=== PATIENT | male | born 1960 | race Caucasian/White ===

== ENCOUNTER → 2018-05-16 | Outpatient (CLI) | payer BC, MEDICAID ==
[2018-05-16 14:54] LABS: Basophils % (A) 1 %; Eosinophils # (A) 0.2 k/uL (0-0.7); Eosinophils % (A) 5 %; HCT 40.5 % (39.0-53.0); HGB 13.8 gm/dL (13.0-17.5); Lymphocytes # (A) 1.2 k/uL (1.0-4.8); Lymphocytes % (A) 25 %; MCV 88.3 fL (80.0-100.0); Mean Platelet Volume 7.9; Monocytes # (A) 0.4 k/uL (0-1.0); Monocytes % (A) 9 %; Neutrophils # (A) 2.7 k/uL (1.3-7.7); Neutrophils % (A) 59 %; Platelet Count 140 k/uL (150-450); RBC 4.59 m/uL (4.30-5.90); RDW 13.3 % (11.5-15.5); WBC 4.6 k/uL (3.8-10.6)
[2018-05-16 15:04] LABS: Calcium 9.2 mg/dL (8.4-10.2); Potassium 4.2 mmol/L (3.5-5.1); Uric Acid 6.9 mg/dL (3.5-8.5)
== END | disposition home or self-care (01) ==
LOC: LAB 14:36
PROVIDERS: ATTEND Internal Medicine Infectious Disease
DX: M79.672 Pain in left foot (principal)
CPT/HCPCS: 80048; 84550; 85025

== ENCOUNTER → 2019-06-06 | Outpatient (CLI) | payer MEDICAID ==
--- NOTE | 2019-06-07 08:05 | MR ---
EXAMINATION TYPE: MR cervical spine wo con DATE OF EXAM: 06/06/2019 COMPARISON: None HISTORY: cervicalgia CONTRAST: Performed utilizing 0 mL intravenous Gadavist gadolinium contrast. TECHNIQUE: Multiplanar multiecho imaging on a 3.0 Susan magnet is performed through the cervical spin e. FINDINGS: The craniovertebral junction is normal. Vertebral body alignment is somewhat straightened. Disc desiccation is present throughout the cervical spine. C7-T1: No focal disc herniation or significant disc bulge is evident. No spinal canal stenosis or n eural foraminal stenosis is present. C6-7: No focal disc herniation or significant disc bulge is evident. No spinal canal stenosis or carolynn ral foraminal stenosis is present. C5-6: Endplate changes are present at C5-6 with moderate anterior thecal sac impression. Severe bilat eral foraminal stenosis is likely present due to uncovertebral joint hypertrophy and some facet hyper trophy.. C4-5: There is right paracentral endplate changes of spurring with moderate anterior thecal sac compr ession. Cord contact may be present. Spinal canal narrowing may be present. Neural foramen on the rig ht is moderate to severely narrowed and there is moderate left foraminal narrowing. C3-4: No focal disc herniation or significant disc bulge is evident. No spinal canal stenosis presen t. There is severe bilateral foraminal narrowing due to uncovertebral joint protection. C2-3: No focal disc herniation or significant disc bulge is evident. No spinal canal stenosis or carolynn ral foraminal stenosis is present. IMPRESSIONS: 1. Uncovertebral joint hypertrophy with severe bilateral foraminal narrowing discussed above. 2. Right paracentral endplate spurring C4-5 and C5-6 with moderate anterior thecal sac compression. S ome cord contact may be present at C4-5.
== END | disposition home or self-care (01) ==
LOC: RADMRIMAIN 13:29
PROVIDERS: ATTEND Orthopaedic Surgery Sports Medicine
DX: M48.02 Spinal stenosis, cervical region (principal); M19.011 Primary osteoarthritis, right shoulder; M17.11 Unilateral primary osteoarthritis, right knee
CPT/HCPCS: 72141

== ENCOUNTER → 2019-07-26 | Outpatient (CLI) | payer MEDICAID ==
[2019-07-26 12:28] VITALS: BP 141/86; PULSE 90; RESP 16
--- NOTE | 2019-07-26 13:10 | P.PAINCN ---
History of Present Illness - Reason for Consult Consult date: 07/26/19 - History of Present Illness The initial consultation visit for this 59 years old male with a history of severe neck pain with radiation to the shoulder bilaterally, started 6 months ago is constant and increases with any activity, patient diagnosed also with rotator cuff tendinosis, for that reason his doing physical therapy on his shoulder, and he had some improvement, but he continued to have severe neck pain, the pain radiated sometimes to the shoulder blade area, he denies any motor or sensory deficit he denies any fever or night sweats and there is no change in the bowel movement or urination, his currently on Ultram 50 mg when necessary and Motrin 800 mg when necessary, and he is getting some benefit from and he denies any side effect of the medication, patient reported that he had occasional numbness and tingling sensations radiates from the wrist though the hands bilaterally, but he does not have any numbness and tingling in the upper extremity Past Medical History Past Medical History: GERD/Reflux, Prostate Disorder, Thyroid Disorder Additional Past Medical History / Comment(s): migraines, "white coat syndrome", chest pain from GERD,varicose veins,hiatal hernia, enlarged prostate History of Any Multi-Drug Resistant Organisms: None Reported Past Surgical History: Cholecystectomy, Tonsillectomy Additional Past Surgical History / Comment(s): left eye lasik, left bicep reattached, lipomas removed, Past Anesthesia/Blood Transfusion Reactions: Previous Problems w/ Anesthesia Additional Past Anesthesia/Blood Transfusion Reaction / Comm: woke up during two surgeries Additional Psychological History / Comment(s): anxious about the surgery Smoking Status: Never smoker Past Alcohol Use History: Rare Past Drug Use History: None Reported - Past Family History Father Additional Family Medical History / Comment(s): ALZHEIMERS Mother Family Medical History: Cancer, Congestive Heart Failure (CHF) Additional Family Medical History / Comment(s): SKIN BASAL CELL, AORTIC STENOSIS Brother(s) Family Medical History: Cancer Additional Family Medical History / Comment(s): MELANOMA Medications and Allergies Home Medications Medication Instructions Recorded Confirmed Type Aspirin EC [Ecotrin] 81 mg PO DAILY 12/26/14 07/26/19 History Esomeprazole Magnesium [NexIUM] 40 mg PO DAILY 12/26/14 07/26/19 History Levothyroxine Sodium [Synthroid] 50 mcg PO DAILY 12/26/14 07/26/19 History Tums(Dose Unknown) 1 tab PO DIRECTED PRN 12/26/14 07/26/19 History Acetaminophen [Tylenol Extra 500 mg PO Q8HR PRN 07/26/19 07/26/19 History Strength] Ibuprofen [Motrin] 1 tab PO Q8HR 07/26/19 07/26/19 History amLODIPine [Norvasc] 1 tab PO DAILY 07/26/19 07/26/19 History traMADol HCl [Ultram] 1 tab PO PC-SUPPER 07/26/19 07/26/19 History Allergies Allergy/AdvReac Type Severity Reaction Status Date / Time egg Allergy Anaphylaxis Verified 06/15/18 11:55 Physical Exam Vitals: Vital Signs Pulse Resp BP Pulse Ox 07/26/19 12:10 90 16 141/86 98 Intake and Output 07/25/19 07/26/19 07/26/19 22:59 06:59 14:59 Other: Weight 113.398 kg REVIEW OF ORGAN SYSTEMS: CONSTITUTIONAL: No fevers or chills. No recent weight loss. EYES: History of troubles with vision. No glasses. HEENT: No difficulties with hearing. No nosebleeds. No difficulty swallowing. RESPIRATORY: Past pneumonia. Denies any troubles with breathing or dyspnea on exertion. CARDIOVASCULAR: Denies any chest pain, palpitations, or recent heart attacks. GASTROINTESTINAL: Denies fatty food intolerance. Has change in bowel habits and gas bloat. GENITOURINARY: Denies any blood in urine. Has increased urinary frequency. NEUROLOGICAL: Neck pain, numbness and tingling in the wrist and hand bilaterally. No seizure disorders or headaches. MUSCULOSKELETAL: Neck pain pain, SKIN: Past t skin cancer. No rash. PSYCHIATRIC: Denies current depression or suicidal thoughts. ENDOCRINE: Denies current thyroid disorders. Denies any blood sugar glucose intolerance. HEME/LYMPHATIC: Denies any lumps and bumps around the neck. History of deep venous thrombosis. ALLERGY/IMMUNOLOGY: No immunoglobulin therapy. No immune deficiencies. BREAST: Denies current breast lumps, pain or nipple discharge. Physical Examinations : Constitutiona : Cooperative , not in acute distress . HEENT : nech : supple , no Lymphadenopathy , normal thyroid size . eyes : no ptosis , no icterus, no photophobia . ENT : normal of hearing , normal oropharynx , no Thrush . Respiratory : Chest clear to auscultations Bilaterally , no wheezing , no Rhonchi . Cardiovascula : regular rate and rhythem , S1 , S2 , no S3 , no S4. Gastrointestina : abdomen soft no tenderness , bowel sounds , no organomegally . Genitourinary : Defferred . neurologic : Cranial nerve II to XII intact , no focal neurological deffecit . psychatric : alert , oriented X 3 , appropriate affect , intact judgment and insight . Lymphatic : no Lymphadenopathy . musculoskeltal : Cervical Spine motor stregnth in the deltoid and biceps, normal right side , normal Left side motor stregnth biceps and the wrist extensors normal right side ,normal left side . motor stregnth in the triceps muscle . normal Right side , normal Left side deep tendon reflexes normal at the biceps , normal at Brachioradialis , normal at triceps. cervical facet loading test: Positive Bilaterally Spurling test positive bilaterally. Neck distraction test positive bilaterally. Valeriy sign positive bilaterally. Decreased abduction and lateral rotation of shoulders bilaterally Lumber spine moter stegnth lower extremities ,thigh and legs 5/5 Right side , 5/5 Left side Results Comments: MRI of the cervical spine= C4 5 and C5 6 cervical degenerative disc disease on some facet arthropathy Assessment and Plan Plan: Assessment and plan= chronic neck pain secondary to cervical degenerative disc disease and cervical spondylosis with cervical facet arthropathy Bilateral carpal tunnel syndrome Patient could benefit from cervical epidural steroid injections under fluoroscopy guidance at C7-T1 Patient should continue his current medication, and he should continue physical therapy Time with Patient: Greater than 30 PQRS Measure Charge Sheet Measure #130: Documentation of Current Meds in Medical Chart: Patient's medications documented in chart Measure #226: Tobacco Use: Screen & Cessation Intervention: Pt not a tobacco user Measure #111: Pneumonia Vaccination: Pneumococcal vaccine NOT administered or previously given Measure #47: Advance Care Plan: Advance care planning discussed & documented, pt chose/unable to give Measure #412: Opioid Treatment Agreement: No documentation of signed opioid treatment agreement Measure #408: Opioid Therapy Follow-up Evaluation: Patient had NO f/u eval minimum every 3 months during opioid therapy Measure #317: Preventitive Care & Scrn High Bld Press & F/U: Pre-hypertensive or hypertensive BP documented, pt will f/u with PCP Measure #128: Body Mass Index (BMI) Screening & Follow-up: BMI documented ABOVE normal parameters - f/u documented Measure #131: Pain Assessment & Follow-up: Pain positive & plan documented, Follow-up scheduled Measure #431: Unhealthy Alcohol Use Preventative Care & Scrn: Patient not identified as an unhealthy alcohol user PQRS Narrative: Smoking Status Never smoker Blood Pressure 141/86 Pain Intensity [Shoulder] 8 Scale Used Numeric (1 - 10) Hx Alcohol Use (MH) No Home Medications: Ambulatory Orders Aspirin EC [Ecotrin] 81 mg PO DAILY 12/26/14 Esomeprazole Magnesium [NexIUM] 40 mg PO DAILY 12/26/14 Levothyroxine Sodium [Synthroid] 50 mcg PO DAILY 12/26/14 Tums(Dose Unknown) 1 tab PO DIRECTED PRN 12/26/14 Acetaminophen [Tylenol Extra Strength] 500 mg PO Q8HR PRN 07/26/19 Ibuprofen [Motrin] 1 tab PO Q8HR 07/26/19 amLODIPine [Norvasc] 1 tab PO DAILY 07/26/19 traMADol HCl [Ultram] 1 tab PO PC-SUPPER 07/26/19
== END | disposition home or self-care (01) ==
LOC: PNWHC3 11:39
PROVIDERS: ATTEND Specialist
DX: G89.29 Other chronic pain (principal); M50.321 Other cervical disc degeneration at C4-C5 level; M47.812 Spondylosis without myelopathy or radiculopathy, cervical region; M46.92 Unspecified inflammatory spondylopathy, cervical region; G56.03 Carpal tunnel syndrome, bilateral upper limbs; Z79.82 Long term (current) use of aspirin; Z79.891 Long term (current) use of opiate analgesic; Z79.1 Long term (current) use of non-steroidal anti-inflammatories (NSAID); Z79.899 Other long term (current) drug therapy
CPT/HCPCS: 99211

== ENCOUNTER 2019-08-07 09:42 | Day surgery (SDC) | payer MEDICAID ==
[2019-08-06 09:40] VITALS: BMI 33.9
[~2019-08-07 09:42] MED LIST: LACTATED RINGERS 1,000 ML IV SCH
[2019-08-07 10:25] VITALS: RESP 16; TEMP 98.1
[2019-08-07] MEDS ORDERED: LIDOCAINE 1% 20 ML VIAL (10MG/ML) FOR IV START INTRADERMA ONE (10:30)
--- NOTE | 2019-08-07 10:59 | P.PCN ---
Date of Procedure: 08/07/19 Procedure(s) Performed: . PROCEDURE 1. Cervical epidural steroid injection under fluoroscopic guidance, C7-T1 (fluoroscopy images available in the radiology department ) 2. Cervical epidurogram. PREOPERATIVE DIAGNOSIS: 1- Cervical Degenerative Disc Diseases 2-cervical spondylosis with cervical Facet arthropathy without myelopathy POSTOPERATIVE DIAGNOSIS: : 1- Cervical Degenerative Disc Diseases , 2-cervical spondylosis with cervical Facet arthropathy without myelopathy ANESTHESIA: Local anesthesia with lidocaine 1 % , and moderate sedation, with Versed 2 mg and Fentanyl 100 mcg. EBL 0 PROCEDURE INDICATION: The patient with neck pain and radiculitis unresponsive to conservative treatment consents for procedure. PROCEDURE DESCRIPTION / TECHNIQUE: The patient was seen and identified in the preoperative area. Risks, benefits, complications, including but not limited to infections ,bleeding , allergic reactions to the medications ,and not complete pain releife, and alternatives were discussed with the patient, the patient agreed to proceed with the procedure and signed the consent. Patient was taken to the OR and time out was completed. The patient was placed in the prone position on the procedure table. A pillow was placed under the patients chest to increase the cervical interlaminar space. The cervical area was prepped and draped in the usual sterile fashion. Vital signs were closely monitored during the procedure. Conscious sedation was used during the procedure to decrease patients anxiety. Using anterior-posterior fluoroscopy, the C7-T1 interlaminar space was identified and the skin over this site was marked and then infiltrated with 1% lidocaine subcutaneously. Subsequently, a 20-gauge 3-1/2-inch Tuohy epidural needle was inserted and advanced toward the epidural space by means of the ``hanging-drop technique and guided by AP and lateral fluoroscopy. The correct needle position in the epidural space was verified with the injection of 2 mL of the water soluble contrast dye [id number]-200 and observing an excellent epidurogram with the epidural spread of the dye, after negative aspiration for blood and CSF and in the absence of paresthesias. Again after negative aspiration, mixture containing 20 mg Dexamethasone and 2 ml of preservative- free normal saline injected and a washout of epidurogram was seen. Needle was withdrawn intact, skin was cleansed, and bandages were applied. Complications= none. Disposition= patient was placed in supine position and transferred to the recovery room area in stable condition and there was no evidence of upper or lower extremity motor or sensory deficit after the procedure patient was discharged from recovery room after discharge criteria met and home discharge instructions was given by the staff and patient will follow with the pain clinic in 2-4 weeks
[2019-08-07] MEDS ORDERED: IV FLUID CONTINUATION 700 ML IV ONE (11:05)
[2019-08-07 11:23] VITALS: BP 130/86; PULSE 72
--- NOTE | 2019-08-08 10:55 | FL ---
Fluoroscopy HISTORY: Pain 1 seconds fluoroscopy time supplied to the referring clinician. 1 intraoperative C-arm images docume nt the procedure. See dictated report from anesthesia.
== END 2019-08-07 11:47 | disposition home or self-care (01) ==
LOC: ORPAIN 09:42
PROVIDERS: ATTEND Specialist
DX: M50.13 Cervical disc disorder with radiculopathy, cervicothoracic region (principal); M47.22 Other spondylosis with radiculopathy, cervical region; Z91.012 Allergy to eggs
CPT/HCPCS: 62321; J2250; J1100; J3010; Q9966

== ENCOUNTER 2019-08-08 21:24 | Emergency (ER) | payer MEDICAID ==
--- NOTE | 2019-08-08 21:35 | ED ---
General Adult HPI - General Chief complaint: Dizziness Stated complaint: facial & head pressure Time Seen by Provider: 08/08/19 21:34 Source: patient Mode of arrival: ambulatory Limitations: no limitations - History of Present Illness Initial comments: Jose is a 59-year-old gentleman who presents to the ER today for evaluation of hypertension and facial flushing. Patient reports that yesterday he had steroid injections in his neck for treatment of chronic neck pain, patient reports that he was feeling fine today. He reported his neck and shoulder pain which is chronic was significantly improved. He states that he did do a little more physical activity than usual due to feeling better. He states that this evening he began to feel that his face was very flushed and is having a mild headache. He checked his blood pressure and noted that it was significantly elevated at greater than 200/100 at home. Patient usually takes Norvasc daily, he did take his morning dose but chose to take an extra dose this evening. Due to the redness and flushing he also took some Benadryl and 2 Tylenol. He then had his drive him to the ER for further evaluation. Upon arrival patient reports she is arty feeling better, the flushing his improved with Benadryl the headache is improved with Tylenol and his blood pressure is improving upon arrival. The patient denies any chest pain, palpitations or shortness of breath. He denies any vision changes or focal neurologic deficits. - Related Data Home Medications Medication Instructions Recorded Confirmed Aspirin EC [Ecotrin] 81 mg PO DAILY 12/26/14 08/08/19 Levothyroxine Sodium [Synthroid] 50 mcg PO DAILY 12/26/14 08/08/19 Acetaminophen [Tylenol Extra 500 - 1,000 mg PO Q8HR PRN 07/26/19 08/08/19 Strength] Ibuprofen [Motrin] 400 mg PO Q8HR PRN 07/26/19 08/08/19 traMADol HCl [Ultram] 50 mg PO Q12H PRN 07/26/19 08/08/19 Calcium Carbonate [Tums] 500 mg PO QID PRN 08/06/19 08/08/19 Ascorbic Acid [Vitamin C] 1,000 mg PO DAILY 08/08/19 08/08/19 Diazepam [Valium] 5 mg PO DAILY PRN 08/08/19 08/08/19 Esomeprazole Magnesium [NexIUM 20 mg PO BID 08/08/19 08/08/19 24Hr] Glucos Sul 2Kcl/MSM/Chond/C/Mn 1 cap PO DAILY 08/08/19 08/08/19 [Glucosamine Chondroitin Cap] amLODIPine [Norvasc] 2.5 mg PO DAILY 08/08/19 08/08/19 diphenhydrAMINE HCL [Benadryl] 25 mg PO Q6H PRN 08/08/19 08/08/19 Allergies Allergy/AdvReac Type Severity Reaction Status Date / Time egg Allergy Anaphylaxis Verified 08/08/19 22:10 Review of Systems ROS Statement: Those systems with pertinent positive or pertinent negative responses have been documented in the HPI. ROS Other: All systems not noted in ROS Statement are negative. Past Medical History Past Medical History: GERD/Reflux, Prostate Disorder, Thyroid Disorder Additional Past Medical History / Comment(s): migraines, "white coat syndrome", chest pain from GERD,varicose veins,hiatal hernia, enlarged prostate History of Any Multi-Drug Resistant Organisms: None Reported Past Surgical History: Cholecystectomy, Tonsillectomy Additional Past Surgical History / Comment(s): left eye lasik, left bicep reattached, lipomas removed, Past Anesthesia/Blood Transfusion Reactions: Previous Problems w/ Anesthesia Additional Past Anesthesia/Blood Transfusion Reaction / Comment(s): woke up during two surgeries Past Psychological History: No Psychological Hx Reported Smoking Status: Never smoker Past Alcohol Use History: Rare Past Drug Use History: None Reported - Past Family History Father Additional Family Medical History / Comment(s): ALZHEIMERS. Mother Family Medical History: Cancer, Congestive Heart Failure (CHF) Additional Family Medical History / Comment(s): SKIN BASAL CELL, AORTIC GERI NOSIS. Brother(s) Family Medical History: Cancer Additional Family Medical History / Comment(s): MELANOMA, Prostate cancer. General Exam - General Exam Comments Initial Comments: Physical Exam GENERAL: Patient is well-developed and well-nourished. Patient is nontoxic and well-hydrated and is in no distress. HENT: Normocephalic, Atraumatic. EYES: PERRL, EOMI PULMONARY: Unlabored respirations. No audible rales rhonchi or wheezing was noted. CARDIOVASCULAR: There is a regular rate and rhythm without any murmurs gallops or rubs. ABDOMEN: Soft and nontender with normal bowel sounds. SKIN: Skin is clear with no lesions or rashes and otherwise unremarkable. Mild facial flushing : Deferred NEUROLOGIC: Patient is alert and oriented x3. Moving all extremities spontaneously MUSCULOSKELETAL: Normal extremities with adequate strength and full range of motion. No lower extremity swelling or edema. No calf tenderness. PSYCHIATRIC: Normal psychiatric evaluation. Limitations: no limitations Course Vital Signs 08/08/19 08/09/19 21:27 00:05 Temperature 98.2 F Pulse Rate 86 82 Respiratory 20 20 Rate Blood Pressure 199/111 136/93 O2 Sat by Pulse 96 95 Oximetry EKG Findings - EKG Comments: EKG Findings:: EKG was obtained due to hypertension, EKG was obtained at 2223, rate is 81 rhythm is sinus with a right bundle branch block, MD 160, 18, QTC Is [address] Elevations or Depressions No Evidence of Acute Ischemia or Infarction. Medical Decision Making - Medical Decision Making Patient was seen and evaluated, history is obtained from the patient as well as at bedside this is a pleasant 59-year-old gentleman who had a steroid injection yesterday today experience some facial flushing and hypertension. He took extra dose of antihypertensives prior to arrival and blood pressure is improving on arrival bedside EKG was unremarkable labs are unremarkable upon reevaluation patient reports he's feeling much better aside from the fact that the hospital but is quite uncomfortable and is irritating his chronic neck pain. This time patient like to be discharged home. All questions pertaining care were answered return parameters were discussed patient was discharged home in stable condition. - Lab Data Result diagrams: 08/08/19 22:13 08/08/19 22:13 Lab Results 08/08/19 08/08/19 08/08/19 Range/Units 22:13 22:13 22:13 WBC 11.4 H (3.8-10.6) k/uL RBC 4.70 (4.30-5.90) m/uL Hgb 14.6 (13.0-17.5) gm/dL Hct 42.4 (39.0-53.0) % MCV 90.1 (80.0-100.0) fL MCH 31.1 (25.0-35.0) pg MCHC 34.5 (31.0-37.0) g/dL RDW 13.2 (11.5-15.5) % Plt Count 166 (150-450) k/uL Neutrophils % 78 % Lymphocytes % 15 % Monocytes % 5 % Eosinophils % 0 % Basophils % 1 % Neutrophils # 8.9 H (1.3-7.7) k/uL Lymphocytes # 1.7 (1.0-4.8) k/uL Monocytes # 0.5 (0-1.0) k/uL Eosinophils # 0.0 (0-0.7) k/uL Basophils # 0.1 (0-0.2) k/uL PT 10.3 (9.0-12.0) sec INR 1.0 (<1.2) APTT 22.0 (22.0-30.0) sec Sodium 140 (137-145) mmol/L Potassium 4.1 (3.5-5.1) mmol/L Chloride 107 (98-107) mmol/L Carbon Dioxide 24 (22-30) mmol/L Anion Gap 9 mmol/L BUN 15 (9-20) mg/dL Creatinine 0.92 (0.66-1.25) mg/dL Est GFR (CKD-EPI)AfAm >90 (>60 ml/min/1.73 sqM) Est GFR (CKD-EPI)NonAf >90 (>60 ml/min/1.73 sqM) Glucose 121 H (74-99) mg/dL Calcium 9.6 (8.4-10.2) mg/dL Magnesium 2.2 (1.6-2.3) mg/dL Total Bilirubin 0.4 (0.2-1.3) mg/dL AST 34 (17-59) U/L ALT 62 (21-72) U/L Alkaline Phosphatase 57 (38-126) U/L Troponin I (0.000-0.034) ng/mL Total Protein 7.6 (6.3-8.2) g/dL Albumin 4.5 (3.5-5.0) g/dL 08/08/19 Range/Units 22:13 WBC (3.8-10.6) k/uL RBC (4.30-5.90) m/uL Hgb (13.0-17.5) gm/dL Hct (39.0-53.0) % MCV (80.0-100.0) fL MCH (25.0-35.0) pg MCHC (31.0-37.0) g/dL RDW (11.5-15.5) % Plt Count (150-450) k/uL Neutrophils % % Lymphocytes % % Monocytes % % Eosinophils % % Basophils % % Neutrophils # (1.3-7.7) k/uL Lymphocytes # (1.0-4.8) k/uL Monocytes # (0-1.0) k/uL Eosinophils # (0-0.7) k/uL Basophils # (0-0.2) k/uL PT (9.0-12.0) sec INR (<1.2) APTT (22.0-30.0) sec Sodium (137-145) mmol/L Potassium (3.5-5.1) mmol/L Chloride (98-107) mmol/L Carbon Dioxide (22-30) mmol/L Anion Gap mmol/L BUN (9-20) mg/dL Creatinine (0.66-1.25) mg/dL Est GFR (CKD-EPI)AfAm (>60 ml/min/1.73 sqM) Est GFR (CKD-EPI)NonAf (>60 ml/min/1.73 sqM) Glucose (74-99) mg/dL Calcium (8.4-10.2) mg/dL Magnesium (1.6-2.3) mg/dL Total Bilirubin (0.2-1.3) mg/dL AST (17-59) U/L ALT (21-72) U/L Alkaline Phosphatase (38-126) U/L Troponin I <0.012 (0.000-0.034) ng/mL Total Protein (6.3-8.2) g/dL Albumin (3.5-5.0) g/dL Disposition Clinical Impression: Hypertension Disposition: HOME SELF-CARE Condition: Stable Instructions (If sedation given, give patient instructions): Chronic Hypertension (DC) Is patient prescribed a controlled substance at d/c from ED?: No Referrals: Ravin Guillermo MD [REFERRING] - 1-2 days
[2019-08-08 22:40] LABS: Basophils # (A) 0.1 k/uL (0-0.2); Basophils % (A) 1 %; Eosinophils % (A) 0 %; HCT 42.4 % (39.0-53.0); HGB 14.6 gm/dL (13.0-17.5); Lymphocytes # (A) 1.7 k/uL (1.0-4.8); Lymphocytes % (A) 15 %; MCH 31.1 pg (25.0-35.0); MCHC 34.5 g/dL (31.0-37.0); MCV 90.1 fL (80.0-100.0); Mean Platelet Volume 8.3; Monocytes # (A) 0.5 k/uL (0-1.0); Monocytes % (A) 5 %; Neutrophils # (A) 8.9 k/uL (1.3-7.7); Neutrophils % (A) 78 %; Platelet Count 166 k/uL (150-450); RDW 13.2 % (11.5-15.5); WBC 11.4 k/uL (3.8-10.6)
[2019-08-08 22:47] LABS: ALT 62 U/L (21-72); AST 34 U/L (17-59); African American GFR (CKD) >90 (>60 ml/min/1.73 sqM); Albumin 4.5 g/dL (3.5-5.0); Alkaline Phosphatase 57 U/L (38-126); Anion Gap 9 mmol/L; Blood Urea Nitrogen 15 mg/dL (9-20); Calcium 9.6 mg/dL (8.4-10.2); Carbon Dioxide 24 mmol/L (22-30); Chloride 107 mmol/L (98-107); Glucose 121 mg/dL (74-99); Magnesium 2.2 mg/dL (1.6-2.3); Potassium 4.1 mmol/L (3.5-5.1); Sodium 140 mmol/L (137-145); Total Bilirubin 0.4 mg/dL (0.2-1.3); Total Protein 7.6 g/dL (6.3-8.2)
[2019-08-08 22:54] LABS: Prothrombin Time 10.3 sec (9.0-12.0)
--- NOTE | 2019-08-08 23:04 | XR ---
EXAMINATION TYPE: XR chest 2V DATE OF EXAM: 08/08/2019 COMPARISON: May 04, 2013 HISTORY: Dizziness and chest pain TECHNIQUE: Frontal and lateral views of the chest are obtained. FINDINGS: Heart and mediastinum are normal. Lungs are clear. Diaphragm is normal. Bony thorax appear s intact. There are chest leads. Pulmonary vascularity is normal. IMPRESSION: Normal chest. No change.
[2019-08-09 00:35] VITALS: BP 142/91; PULSE 79; RESP 18; TEMP 98.1
== END 2019-08-09 00:32 | disposition home or self-care (01) ==
LOC: EC 21:24 → SUPCPDRO 21:24 → EC 08-09 00:32
DX: I10 Essential (primary) hypertension (principal); G89.29 Other chronic pain; M54.2 Cervicalgia; K21.9 Gastro-esophageal reflux disease without esophagitis; E07.9 Disorder of thyroid, unspecified; Z79.82 Long term (current) use of aspirin; Z79.890 Hormone replacement therapy; Z79.899 Other long term (current) drug therapy; Z91.012 Allergy to eggs
CPT/HCPCS: 36415; 71046; 80053; 83735; 84484; 85025; 85610; 85730; 93005; 99284

== ENCOUNTER → 2019-09-18 | Outpatient (CLI) | payer MEDICAID ==
[2019-09-18 15:01] VITALS: BP 141/98; PULSE 89; RESP 18
--- NOTE | 2019-09-19 08:11 | P.PN ---
Subjective Progress Note Date: 09/19/19 this is a 59 years old male, a chronic history of neck pain, diagnosed with cervical degenerative disc disease and cervical spondylosis with cervical facet arthropathy, he is here for follow-up visit status post cervical epidural steroid injections, done recently, patient had side effects from the steroid, and he has to go to the emergency room, here for the postop day 1 he has increased his blood pressure and had facial flushing, he reported that he had good pain relief after the injection , and the pain relief lasted only for 2 weeks, Objective - Vital Signs Vital signs: Vital Signs Temp Pulse 89 09/18/19 14:43 Resp 18 09/18/19 14:43 BP 141/98 09/18/19 14:43 Pulse Ox 95 09/18/19 14:43 - Exam Constitutiona : Cooperative , not in acute distress . HEENT : nech : supple , no Lymphadenopathy , normal thyroid size . eyes : no ptosis , no icterus, no idania tophobia . . neurologic : Cranial nerve II to XII intact , no focal neurological deffecit . psychatric : alert , oriented X 3 , appropriate affect , intact judgment and insight . Lymphatic : no Lymphadenopathy . musculoskeltal : Cervical Spine motor stregnth in the deltoid and biceps, normal right side , normal Left side motor stregnth biceps and the wrist extensors normal right side ,normal left side . motor stregnth in the triceps muscle . normal Right side , normal Left side deep tendon reflexes normal at the biceps , normal at Brachioradialis , normal at triceps. cervical facet loading test: Positive Bilaterally Spurling test positive bilaterally. Neck distraction test positive bilaterally. Valeriy sign positive bilaterally. Decreased abduction and lateral rotation of shoulders bilaterally Lumber spine moter stegnth lower extremities ,thigh and legs 5/5 Right side , 5/5 Left side Assessment and Plan Plan: assessment and plan= chronic severe neck pain secondary to cervical degenerative disc disease and cervical spondylosis, status post cervical epidural steroid injection, he had side effects from the steroid, I have lengthy discussion with the patient about the side effects of the steroid ,and I explained to the patient ,that the side effects could happen again, and the best option is to give Benadryl ,for a few days, after the injection and also monitor the blood pressure if we have to increase the dose of antihypertensive medication, and patient willing to proceed. Time with Patient: Less than 30
== END | disposition home or self-care (01) ==
LOC: PNWHC3 13:46
PROVIDERS: ATTEND Specialist
DX: G89.29 Other chronic pain (principal); M50.30 Other cervical disc degeneration, unspecified cervical region; M47.812 Spondylosis without myelopathy or radiculopathy, cervical region; Z79.899 Other long term (current) drug therapy
CPT/HCPCS: 99211

== ENCOUNTER → 2019-10-09 | Day surgery (SDC) | payer MEDICAID ==
[~2019-10-09] MED LIST changes: +DEXAMETHASONE SOD PHOSPHATE 10 MG/ML 1 ML VIAL ONE; +IOPAMIDOL M200 10 ML VIAL ONE; +LIDOCAINE 1% 20 ML VIAL (10MG/ML) FOR IV START INTRADERMA ONE; +MIDAZOLAM 2 MG/2 ML VIAL ONE; +fentaNYL (PF) 50 MCG/ML 2 ML AMP ONE
[2019-10-09 07:10] VITALS: TEMP 97.6
--- NOTE | 2019-10-09 07:50 | P.PCN ---
Date of Procedure: 10/09/19 Procedure(s) Performed: PROCEDURE 1. Cervical epidural steroid injection under fluoroscopic guidance, C7-T1 (fluoroscopy images available in the radiology department ) 2. Cervical epidurogram. PREOPERATIVE DIAGNOSIS: 1- Cervical Degenerative Disc Diseases 2-cervical spondylosis with cervical Facet arthropathy without myelopathy POSTOPERATIVE DIAGNOSIS: : 1- Cervical Degenerative Disc Diseases , 2-cervical spondylosis with cervical Facet arthropathy without myelopathy ANESTHESIA: Local anesthesia with lidocaine 1 % , and moderate sedation, with Versed 2 mg and Fentanyl 100 mcg. EBL 0 PROCEDURE INDICATION: The patient with neck pain and radiculitis unresponsive to conservative treatment consents for procedure. PROCEDURE DESCRIPTION / TECHNIQUE: The patient was seen and identified in the preoperative area. Risks, benefits, complications, including but not limited to infections ,bleeding , allergic reactions to the medications ,and not complete pain releife, and alternatives were discussed with the patient, the patient agreed to proceed with the procedure and signed the consent. Patient was taken to the OR and time out was completed. The patient was placed in the prone position on the procedure table. A pillow was placed under the patients chest to increase the cervical interlaminar space. The cervical area was prepped and draped in the usual sterile fashion. Vital signs were closely monitored during the procedure. Conscious sedation was used during the procedure to decrease patients anxiety. Using anterior-posterior fluoroscopy, the C7-T1 interlaminar space was identified and the skin over this site was marked and then infiltrated with 1% lidocaine subcutaneously. Subsequently, a 20-gauge 3-1/2-inch Tuohy epidural needle was inserted and advanced toward the epidural space by means of the ``hanging-drop technique and guided by AP and lateral fluoroscopy. The correct needle position in the epidural space was verified with the injection of 2 mL of the water soluble contrast dye [id number]-200 and observing an excellent epidurogram with the epidural spread of the dye, after negative aspiration for blood and CSF and in the absence of paresthesias. Again after negative aspiration, mixture containing 15 mg Dexamethasone and 2 ml of preservative- free normal saline injected and a washout of epidurogram was seen. Needle was withdrawn intact, skin was cleansed, and bandages were applied. Complications= none. Disposition= patient was placed in supine position and transferred to the recovery room area in stable condition and there was no evidence of upper or lower extremity motor or sensory deficit after the procedure patient was discharged from recovery room after discharge criteria met and home discharge instructions was given by the staff and patient will follow with the pain clinic in 2-4 weeks
[2019-10-09 07:58] VITALS: RESP 17
[2019-10-09 08:11] VITALS: BP 138/85; PULSE 77
--- NOTE | 2019-10-09 08:51 | FL ---
EXAMINATION TYPE: FL guided pain mgmt statistic DATE OF EXAM: 10/09/2019 HISTORY: Flouroscopy time 5 seconds of fluoroscopy provided. IMPRESSION: 1. Fluoroscopy time.
== END ==
LOC: ORPAIN 06:28
PROVIDERS: ATTEND Anesthesiology
DX: M47.22 Other spondylosis with radiculopathy, cervical region (principal); M50.10 Cervical disc disorder with radiculopathy, unspecified cervical region; Z91.012 Allergy to eggs
CPT/HCPCS: 62321; J2250; J1100; J3010; Q9966

== ENCOUNTER → 2019-10-31 | Outpatient (CLI) | payer MEDICAID ==
[2019-10-31 12:41] VITALS: BP 144/88; PULSE 87; RESP 18
--- NOTE | 2019-11-01 05:30 | P.PAINPG ---
Subjective Progress Note Date: 10/31/19 this is visit for this 59 years old male, a chronic history of neck pain, diagnosed with cervical degenerative disc disease and cervical spondylosis with cervical facet arthropathy,status post cervical epidural steroid injections x2 , he reported that his pain improved significantly but he continued to some muscle spasm in the cervical area, he feels that he hasn't the 60-70% improvement of his neck pain, he denies any motor or sensory deficit, he denies any fever or night sweats and no change in the bowel movement or urination, he had side effects from the steroid he had facial flushing and some increase in his blood pressure which was managed with Benadryl ,he continued to use Ultram and [place],m otrin,and Robaxin as precriped by his PCP , Objective - Vital Signs Vital signs: Vital Signs Temp Pulse 87 10/31/19 12:34 Resp 18 10/31/19 12:34 BP 144/88 10/31/19 12:34 Pulse Ox 95 10/31/19 12:34 - Exam Constitutiona : Cooperative , not in acute distress . HEENT : nech : supple , no Lymphadenopathy , normal thyroid size . eyes : no ptosis , no icterus, no photophobia . . neurologic : Cranial nerve II to XII intact , no focal neurological deffecit . psychatric : alert , oriented X 3 , appropriate affect , intact judgment and insight . Lymphatic : no Lymphadenopathy . musculoskeltal : Cervical Spine motor stregnth in the deltoid and biceps, normal right side , normal Left side motor stregnth biceps and the wrist extensors normal right side ,normal left side . motor stregnth in the triceps muscle . normal Right side , normal Left side deep tendon reflexes normal at the biceps , normal at Brachioradialis , normal at triceps. cervical facet loading test: Positive Bilaterally Spurling test positive bilaterally. Neck distraction test positive bilaterally. Valeriy sign positive bilaterally. Decreased abduction and lateral rotation of shoulders bilaterally Lumber spine moter stegnth lower extremities ,thigh and legs 5/5 Right side , 5/5 Left side Assessment and Plan Plan: assessment and plan= cervical degenerative disc disease, cervical spondylosis with cervical facet arthropathy, pain improved after cervical epidural steroid injection 2, but he continued to have some neck pain and some muscle spasm, patient would be good candidate to have a third cervical epidural steroid injections, procedure risk and benefits and alternatives discussed with the patient he agreed with the preceding patient will continue to use his current pain medication Ultram, [place], Motrin and Robaxin as prescribed by his primary care patient denies any side effect of the medication. PQRS Measure Charge Sheet Measure #130: Documentation of Current Meds in Medical Chart: Patient's medications documented in chart Measure #226: Tobacco Use: Screen & Cessation Intervention: Pt not a tobacco user Measure #111: Pneumonia Vaccination: Pneumococcal vaccine NOT administered or previously given Measure #47: Advance Care Plan: Advance care planning discussed & documented, pt chose/unable to give Measure #412: Opioid Treatment Agreement: No documentation of signed opioid treatment agreement Measure #408: Opioid Therapy Follow-up Evaluation: Patient had NO f/u eval minimum every 3 months during opioid therapy Measure #317: Preventitive Care & Scrn High Bld Press & F/U: Pre-hypertensive or hypertensive BP documented, pt will f/u with PCP Measure #128: Body Mass Index (BMI) Screening & Follow-up: BMI documented ABOVE normal parameters - f/u documented Measure #131: Pain Assessment & Follow-up: Pain positive & plan documented, Follow-up scheduled Measure #431: Unhealthy Alcohol Use Preventative Care & Scrn: Patient not identified as an unhealthy alcohol user PQRS Narrative: Smoking Status Never smoker Blood Pressure 144/88 Pain Intensity [Neck] 1 Scale Used Numeric (1 - 10) Hx Alcohol Use (MH) Yes: RARE Home Medications: Ambulatory Orders Aspirin EC [Ecotrin] 81 mg PO DAILY 12/26/14 Levothyroxine Sodium [Synthroid] 50 mcg PO DAILY 12/26/14 Acetaminophen [Tylenol Extra Strength] 500 - 1,000 mg PO Q8HR PRN 07/26/19 Ibuprofen [Motrin] 400 mg PO Q8HR PRN 07/26/19 traMADol HCl [Ultram] 50 mg PO Q12H PRN 07/26/19 Calcium Carbonate [Tums] 500 mg PO QID PRN 08/06/19 Ascorbic Acid [Vitamin C] 500 mg PO DAILY 08/08/19 Diazepam [Valium] 2.5 mg PO DAILY PRN 08/08/19 Esomeprazole Magnesium [NexIUM 24Hr] 20 mg PO BID 08/08/19 Glucos Sul 2Kcl/MSM/Chond/C/Mn [Glucosamine Chondroitin Cap] 1 cap PO DAILY 08/08/19 amLODIPine [Norvasc] 2.5 mg PO DAILY 08/08/19 HYDROcodone/APAP 5-325MG [[place] 5-325] 1 tab PO BID 09/14/19 Robaxin 500 mg PO HS PRN 09/14/19 Melatonin 2.5 mg PO DAILY 10/31/19 Sulfamethox-Tmp 800-160Mg [Bactrim DS 800-160 mg] 1 tab PO BID 10/31/19 Controlled Substance Measures - Controlled Substance Measures Is patient prescribed a controlled substance at discharge?: No
== END | disposition home or self-care (01) ==
LOC: PNWHC3 12:23
PROVIDERS: ATTEND Specialist
DX: M50.30 Other cervical disc degeneration, unspecified cervical region (principal); M47.812 Spondylosis without myelopathy or radiculopathy, cervical region; M46.92 Unspecified inflammatory spondylopathy, cervical region; Z79.82 Long term (current) use of aspirin; Z79.890 Hormone replacement therapy; Z79.1 Long term (current) use of non-steroidal anti-inflammatories (NSAID); Z79.899 Other long term (current) drug therapy; Z79.891 Long term (current) use of opiate analgesic
CPT/HCPCS: 99211

== ENCOUNTER 2019-12-12 06:32 | Day surgery (SDC) | payer MEDICAID ==
[2019-12-11 10:28] VITALS: BMI 33.9
[~2019-12-12 06:32] MED LIST changes: -DEXAMETHASONE SOD PHOSPHATE 10 MG/ML 1 ML VIAL ONE; -IOPAMIDOL M200 10 ML VIAL ONE; -LIDOCAINE 1% 20 ML VIAL (10MG/ML) FOR IV START INTRADERMA ONE; -MIDAZOLAM 2 MG/2 ML VIAL ONE; -fentaNYL (PF) 50 MCG/ML 2 ML AMP ONE
[2019-12-12 07:04] LABS: Glucose,Whole Blood 65 mg/dL (75-99)
[2019-12-12 07:06] VITALS: RESP 16; TEMP 97.9
--- NOTE | 2019-12-12 07:47 | P.GSHP ---
History of Present Illness H&P Date: 12/12/19 this is visit for this 59 years old male, a chronic history of neck pain, diagnosed with cervical degenerative disc disease and cervical spondylosis with cervical facet arthropathy, and patient here today to have cervical epidural steroid injections under fluoroscopy guidance Past Medical History Past Medical History: GERD/Reflux, Prostate Disorder, Thyroid Disorder Additional Past Medical History / Comment(s): migraines, "white coat syndrome", chest pain from GERD,varicose veins,hiatal hernia, enlarged prostate History of Any Multi-Drug Resistant Organisms: None Reported Past Surgical History: Cholecystectomy, Tonsillectomy Additional Past Surgical History / Comment(s): left eye lasik, left bicep reattached, lipomas removed, PAIN CLINIC PROCEDURE Past Anesthesia/Blood Transfusion Reactions: Previous Problems w/ Anesthesia Additional Past Anesthesia/Blood Transfusion Reaction / Comment(s): woke up during two surgeries Smoking Status: Never smoker - Past Family History Father Additional Family Medical History / Comment(s): ALZHEIMERS. Mother Family Medical History: Cancer, Congestive Heart Failure (CHF) Additional Family Medical History / Comment(s): SKIN BASAL CELL, AORTIC STENOSIS. Brother(s) Family Medical History: Cancer Additional Family Medical History / Comment(s): MELANOMA, Prostate cancer. Medications and Allergies Home Medications Medication Instructions Recorded Confirmed Type Aspirin EC [Ecotrin] 81 mg PO DAILY 12/26/14 12/12/19 History Levothyroxine Sodium [Synthroid] 50 mcg PO DAILY 12/26/14 12/12/19 History Acetaminophen [Tylenol Extra 500 - 1,000 mg PO Q8HR PRN 07/26/19 12/12/19 History Strength] Ibuprofen [Motrin] 800 mg PO Q8HR PRN 07/26/19 12/12/19 History traMADol HCl [Ultram] 50 mg PO Q12H PRN 07/26/19 12/12/19 History Calcium Carbonate [Tums] 500 mg PO QID PRN 08/06/19 12/12/19 History Ascorbic Acid [Vitamin C] 500 mg PO DAILY 08/08/19 12/12/19 History Diazepam [Valium] 2.5 mg PO DAILY PRN 08/08/19 12/12/19 History Esomeprazole Magnesium [NexIUM 20 mg PO BID 08/08/19 12/12/19 History 24Hr] Glucos Sul 2Kcl/MSM/Chond/C/Mn 1 cap PO DAILY 08/08/19 12/12/19 History [Glucosamine Chondroitin Cap] amLODIPine [Norvasc] 2.5 mg PO DAILY 08/08/19 12/12/19 History HYDROcodone/APAP 5-325MG [[place] 1 tab PO BID PRN 09/14/19 12/12/19 History 5-325] Melatonin 2.5 mg PO HS PRN 10/31/19 12/12/19 History Methocarbamol [Robaxin] 500 mg PO HS PRN 11/21/19 12/12/19 History Allergies Allergy/AdvReac Type Severity Reaction Status Date / Time egg Allergy Anaphylaxis Verified 12/11/19 10:20 Surgical - Exam Vital Signs Temp Pulse Resp BP Pulse Ox 97.9 F 76 16 132/88 94 L 12/12/19 06:53 12/12/19 06:53 12/12/19 06:53 12/12/19 06:53 12/12/19 06:53 Constitutiona : Cooperative , not in acute distress . HEENT : nech : supple , no Lymphadenopathy , normal thyroid size . eyes : no ptosis , no icterus, no photophobia . . neurologic : Cranial nerve II to XII intact , no focal neurological deffecit . psychatric : alert , oriented X 3 , appropriate affect , intact judgment and insight . Lymphatic : no Lymphadenopathy . musculoskeltal : Cervical Spine motor stregnth in the deltoid and biceps, normal right side , normal Left side motor stregnth biceps and the wrist extensors normal right side ,normal left side . motor stregnth in the triceps muscle . normal Right side , normal Left side deep tendon reflexes normal at the biceps , normal at Brachioradialis , normal at triceps. cervical facet loading test: Positive Bilaterally Spurling test positive bilaterally. Neck distraction test positive bilaterally. Valeriy sign positive bilaterally. Decreased abduction and lateral rotation of shoulders bilaterally Lumber spine moter stegnth lower extremities ,thigh and legs 5/5 Right side , 5/5 Left side Results - Labs Abnormal Lab Results - Last 24 Hours (Table) 12/12/19 Range/Units 07:03 POC Glucose (mg/dL) 65 L (75-99) mg/dL Assessment and Plan Plan: assessment and plan= cervical degenerative disc disease, cervical spondylosis with cervical facet arthropath. Will do cervical epidural steroid injections today Time with Patient: Less than 30
[2019-12-12] MEDS ORDERED: IOPAMIDOL M200 10 ML VIAL ONE (07:52)
[2019-12-12] MEDS ORDERED: DEXAMETHASONE SOD PHOSPHATE 10 MG/ML 1 ML VIAL ONE (07:52)
[2019-12-12] MEDS ORDERED: fentaNYL (PF) 50 MCG/ML 2 ML AMP ONE (07:52)
[2019-12-12] MEDS ORDERED: MIDAZOLAM 2 MG/2 ML VIAL ONE (07:52)
--- NOTE | 2019-12-12 08:02 | P.PCN ---
Date of Procedure: 12/12/19 Procedure(s) Performed: PROCEDURE 1. Cervical epidural steroid injection under fluoroscopic guidance, C7-T1 (fluoroscopy images available in the radiology department ) 2. Cervical epidurogram. PREOPERATIVE DIAGNOSIS: 1- Cervical Degenerative Disc Diseases 2-cervical spondylosis with cervical Facet arthropathy without myelopathy POSTOPERATIVE DIAGNOSIS: : 1- Cervical Degenerative Disc Diseases , 2-cervical spondylosis with cervical Facet arthropathy without myelopathy ANESTHESIA: Local anesthesia with lidocaine 1 % , and moderate sedation, with Versed 2 mg and Fentanyl 100 mcg. EBL 0 PROCEDURE INDICATION: The patient with neck pain and radiculitis unresponsive to conservative treatment consents for procedure. PROCEDURE DESCRIPTION / TECHNIQUE: The patient was seen and identified in the preoperative area. Risks, benefits, complications, including but not limited to infections ,bleeding , allergic reactions to the medications ,and not complete pain releife, and alternatives were discussed with the patient, the patient agreed to proceed with the procedure and signed the consent. Patient was taken to the OR and time out was completed. The patient was placed in the prone position on the procedure table. A pillow was placed under the patients chest to increase the cervical interlaminar space. The cervical area was prepped and draped in the usual sterile fashion. Vital signs were closely monitored during the procedure. Conscious sedation was used during the procedure to decrease patients anxiety. Using anterior-posterior fluoroscopy, the C7-T1 interlaminar space was identified and the skin over this site was marked and then infiltrated with 1% lidocaine subcutaneously. Subsequently, a 20-gauge 3-1/2-inch Tuohy epidural needle was inserted and advanced toward the epidural space by means of the ``hanging-drop technique and guided by AP and lateral fluoroscopy. The correct needle position in the epidural space was verified with the injection of 2 mL of the water soluble contrast dye Isovue-200 and observing an excellent epidurogram with the epidural spread of the dye, after negative aspiration for blood and CSF and in the absence of paresthesias. Again after negative aspiration, mixture containing 15 mg Dexamethasone and 2 ml of preservative- free normal saline injected and a washout of epidurogram was seen. Needle was withdrawn intact, skin was cleansed, and bandages were applied. Complications= none. Disposition= patient was placed in supine position and transferred to the recovery room area in stable condition and there was no evidence of upper or lower extremity motor or sensory deficit after the procedure patient was discharged from recovery room after discharge criteria met and home discharge instructions was given by the staff and patient will follow with the pain clinic in 2-4 weeks
[2019-12-12] MEDS ORDERED: IV FLUID CONTINUATION 1,000 ML IV ONE (08:08)
[2019-12-12 08:27] VITALS: BP 119/80; PULSE 76
--- NOTE | 2019-12-12 11:53 | FL ---
Fluoroscopy HISTORY: Pain 3 seconds fluoroscopy time supplied to the referring clinician. 1 intraoperative C-arm images docume nt the procedure. See dictated report from anesthesia.
== END 2019-12-12 09:38 | disposition home or self-care (01) ==
LOC: ORPAIN 06:32
PROVIDERS: ATTEND Specialist
DX: G89.29 Other chronic pain (principal); M47.22 Other spondylosis with radiculopathy, cervical region; M50.10 Cervical disc disorder with radiculopathy, unspecified cervical region; K21.9 Gastro-esophageal reflux disease without esophagitis; E07.9 Disorder of thyroid, unspecified; G43.909 Migraine, unspecified, not intractable, without status migrainosus; N40.0 Benign prostatic hyperplasia without lower urinary tract symptoms; K44.9 Diaphragmatic hernia without obstruction or gangrene; I83.90 Asymptomatic varicose veins of unspecified lower extremity; Z79.890 Hormone replacement therapy; Z79.82 Long term (current) use of aspirin; Z91.012 Allergy to eggs; Z90.49 Acquired absence of other specified parts of digestive tract; Z90.89 Acquired absence of other organs; Z81.8 Family history of other mental and behavioral disorders; Z82.49 Family history of ischemic heart disease and other diseases of the circulatory system; Z80.8 Family history of malignant neoplasm of other organs or systems; Z80.42 Family history of malignant neoplasm of prostate
CPT/HCPCS: 62321; J2250; J1100; J3010; Q9966

== ENCOUNTER → 2020-04-17 | Outpatient (CLI) | payer MEDICAID ==
[2020-04-17 14:42] VITALS: PULSE 79; RESP 18
[2020-04-17 15:20] VITALS: BP 156/72
--- NOTE | 2020-04-19 06:25 | P.PAINPG ---
Subjective Progress Note Date: 04/17/20 This is a follow-up visit for this 59 years old male with a chronic history of severe neck pain, radiation to the shoulder bilaterally, he is diagnosed with cervical degenerative disc disease and cervical spondylosis with cervical facet arthropathy, previously we have done cervical epidural steroid injection 3, patient reported that he had some benefit from the injection, but he continued to have severe neck pain with radiation to the shoulder bilaterally more prominent on the right side, he has decreased ability to elevate his arms above the shoulder area, and he reported that the neck pain is constant and increased with neck movement or with the using of his upper extremities, he denies any motor or sensory deficit, he denies any fever or night sweats, denies any change in bowel movement or urination, he continued to use [place] 5/325 when necessary Ultram 50 mg when necessary Robaxin 500 mg when necessary and Motrin he denies any side effect of the medication Objective - Vital Signs Vital signs: Vital Signs Temp Pulse 79 04/17/20 14:34 Resp 18 04/17/20 14:34 BP Pulse Ox 95 04/17/20 14:34 Intake & Output 04/16/20 04/17/20 04/17/20 18:59 06:59 18:59 Weight 112.491 kg - Exam Physical Examinations : -Constitutiona : Cooperative , not in acute distress . -HEENT : nech : supple , no Lymphadenopathy , normal thyroid size . : eyes : no ptosis , no icterus, no photophobia . - neurologic : Cranial nerve II to XII intact , no focal neurological deffecit . -psychatric : alert , oriented X 3 , appropriate affect , intact judgment and insight . -Lymphatic : no Lymphadenopathy . - musculoskeltal : Cervical Spine motor stregnth in the deltoid and biceps, normal right side , normal Left side motor stregnth biceps and the wrist extensors normal right side ,normal left side . motor stregnth in the triceps muscle . normal Right side , normal Left side deep tendon reflexes normal at the biceps , normal at Brachioradialis , normal at triceps. Normal sensation in the upper extremities cervical facet loading test= Positive Bilaterally Spurling test= positive bilaterally. Neck distraction test= positive bilaterally. Valeriy sign= positive bilaterally. Degrees abduction bilateral rotation of the shoulders bilaterally Lumber spine moter stegnth lower extremities ,thigh and legs 5/5 Right side , 5/5 Left side MRI of the cervical spine done in 06/06/2019 at [facility]= multilevel cervical foraminal stenosis multilevel cervical degenerative disc disease and multilevel cervical facet hypertrophy Assessment and Plan Plan: Assessment and plan=1-cervical degenerative disc disease. 2-cervical spondylosis with cervical facet arthropathy without myelopathy. 3-bilateral shoulder arthralgia. Patient had improvement of the neck pain after the cervical epidural steroid injection but he continued to have severe neck pain, He will be a good candidate to have diagnostic medial branch block cervical area at C3, C4, C5, C6 bilaterally (to target the facet joint at C3-4, C4-5, C5-C6 ) x2 and if he had positive result and will proceed with RFA , will avoid using steroid for the procedure, goes patient had Side effects from steroid This patient hasn't no benefit from agnostic medial branch blocks. then We will refer patient for orthopedic surgeon for evaluation regarding shoulder pain Patient will continue to use his current medication Motrin ROBAXIN and Tylenol as prescribed by his primary care Time with Patient: Less than 30 PQRS Measure Charge Sheet Measure #130: Documentation of Current Meds in Medical Chart: Patient's medications documented in chart Measure #226: Tobacco Use: Screen & Cessation Intervention: Pt not a tobacco user Measure #111: Pneumonia Vaccination: Pneumococcal vaccine NOT administered or previously given Measure #47: Advance Care Plan: Advance care planning discussed & documented, pt chose/unable to give Measure #412: Opioid Treatment Agreement: No documentation of signed opioid treatment agreement Measure #408: Opioid Therapy Follow-up Evaluation: Patient had NO f/u eval minimum every 3 months during opioid therapy Measure #317: Preventitive Care & Scrn High Bld Press & F/U: Pre-hypertensive or hypertensive BP documented, pt will f/u with PCP Measure #128: Body Mass Index (BMI) Screening & Follow-up: BMI documented ABOVE normal parameters - f/u documented Measure #131: Pain Assessment & Follow-up: Pain positive & plan documented, Follow-up scheduled Measure #431: Unhealthy Alcohol Use Preventative Care & Scrn: Patient not identified as an unhealthy alcohol user PQRS Narrative: Smoking Status Never smoker Pain Intensity [Bilateral 1 Shoulder] Scale Used Numeric (1 - 10) Hx Alcohol Use (MH) Yes: RARE Home Medications: Ambulatory Orders Aspirin EC [Ecotrin] 81 mg PO DAILY 12/26/14 Levothyroxine Sodium [Synthroid] 50 mcg PO DAILY 12/26/14 Acetaminophen [Tylenol Extra Strength] 500 - 1,000 mg PO Q8HR PRN 07/26/19 Ibuprofen [Motrin] 800 mg PO Q8HR PRN 07/26/19 traMADol HCl [Ultram] 50 mg PO Q12H PRN 07/26/19 Calcium Carbonate [Tums] 500 mg PO QID PRN 08/06/19 Ascorbic Acid [Vitamin C] 500 mg PO DAILY 08/08/19 Diazepam [Valium] 2.5 mg PO DAILY PRN 08/08/19 Esomeprazole Magnesium [NexIUM 24Hr] 20 mg PO BID 08/08/19 Glucos Sul 2Kcl/MSM/Chond/C/Mn [Glucosamine Chondroitin Cap] 1 cap PO DAILY 08/08/19 amLODIPine [Norvasc] 2.5 mg PO DAILY 08/08/19 HYDROcodone/APAP 5-325MG [[place] 5-325] 1 tab PO BID PRN 09/14/19 Melatonin 2.5 mg PO HS PRN 10/31/19 Methocarbamol [Robaxin] 500 mg PO HS PRN 11/21/19 Controlled Substance Measures - Controlled Substance Measures Is patient prescribed a controlled substance at discharge?: No
== END | disposition home or self-care (01) ==
LOC: PNWHC3 14:04
PROVIDERS: ATTEND Specialist
DX: M50.30 Other cervical disc degeneration, unspecified cervical region (principal); M47.812 Spondylosis without myelopathy or radiculopathy, cervical region; M25.512 Pain in left shoulder; M25.511 Pain in right shoulder; Z79.899 Other long term (current) drug therapy; Z79.891 Long term (current) use of opiate analgesic; Z79.82 Long term (current) use of aspirin
CPT/HCPCS: 99211

== ENCOUNTER 2020-04-22 06:35 | Day surgery (SDC) | payer MEDICAID ==
[2020-04-22 06:55] VITALS: TEMP 97.3
[2020-04-22] MEDS ORDERED: LACTATED RINGERS 1,000 ML IV ONE (07:00)
[2020-04-22] MEDS ORDERED: LIDOCAINE 1% (10MG/ML) FOR IV START INTRADERMA ONE (07:01)
[2020-04-22] MEDS ORDERED: MIDAZOLAM 2 MG/2 ML VIAL ONE (07:46)
[2020-04-22] MEDS ORDERED: LIDOCAINE 4% (PF) 5 ML AMP ONE (07:46)
[2020-04-22] MEDS ORDERED: IOPAMIDOL M200 10 ML VIAL ONE (07:46)
[2020-04-22] MEDS ORDERED: IV FLUID CONTINUATION 450 ML IV ONE (08:22)
[2020-04-22 08:26] VITALS: RESP 20
--- NOTE | 2020-04-22 08:46 | P.PCN ---
Date of Procedure: 04/22/20 Procedure(s) Performed: PREOPERATIVE DIAGNOSIS: Cervical Spondylosis with Facet Arthropathy.without myelopathy POSTOPERATIVE DIAGNOSIS: Cervical Spondylosis, Facet Arthropathy. Without myelopathy PROCEDURES: Bilateral Diagnostic C3, C4, C5, C6 medial branch blocks for facets C3-4, C4-5, C5-6, with fluoroscopic guidance ANESTHESIA: Local with 1% lidocaine; IV sedation with Versed, sedation time 20 minutes Fluoroscopy was used for the procedure and images were saved in the radiology portion of the chart. EBL: Minimal PROCEDURE INDICATION: The patient with neck pain secondary to cervical arthropathy unresponsive to more conservative treatments. PROCEDURE DESCRIPTION / TECHNIQUE: The patient was seen and identified in the preoperative area. Risks, benefits, complications, and alternatives were discussed with the patient, the patient agreed to proceed with the procedure and signed the consent. IV was started. Vital signs remained stable throughout the procedure. Patient was taken to the OR and time out was completed. The patient was placed in the prone position on the procedure table. A pillow was placed under the patients chest to increase the cervical interlaminar space. The cervical area was prepped and draped in the usual sterile fashion. A timeout was performed. Vital signs were closely monitored during the procedure. Conscious sedation was used during the procedure to decrease patients anxiety. Using cross-table lateral fluoroscopy, the centroid of the trapezoid of the first level was identified, marked, and localized with 1% lidocaine 0.2 ml at each level for skin and subcutaneous infiltration . Subsequently, a 25 G 3.5" Quinke spinal needle was advanced guided by fluoroscopy to the centroid of the trapezoid . [place] tip position was confirmed using lateral fluoroscopy.0.2 mL of Isovue-200 was injected at each level, revealing no intravascular uptake. Subsequently, 0.5 mL of 4% lidocaine was injected at each level. COMPLICATIONS: No acute complications. DISPOSITION / PLANS: The patient was placed in a supine position and transferred to the recovery area in a stable condition for observation and was discharged from the recovery room after meeting discharge criteria. Home discharge instructions given to the patient by the staff. The patient will follow up in clinic in 2 weeks.
[2020-04-22 08:52] VITALS: BP 133/82; PULSE 80
--- NOTE | 2020-04-22 16:29 | FL ---
EXAMINATION TYPE: FL guided pain mgmt statistic DATE OF EXAM: 04/22/2020 COMPARISON: NONE HISTORY: Bilateral cervical facet injection TECHNIQUE: Fluoroscopy. FINDINGS: Fluoroscopic guidance was provided during procedure by performing physician. A total of 1 5 seconds of fluoroscopic time was utilized during the procedure and 7 spot images was acquired. Plea se see operative report for more details. IMPRESSION: As Above.
== END 2020-04-22 09:02 | disposition home or self-care (01) ==
LOC: ORPAIN 06:35
PROVIDERS: ATTEND Anesthesiology
DX: M47.812 Spondylosis without myelopathy or radiculopathy, cervical region (principal); Z79.82 Long term (current) use of aspirin
CPT/HCPCS: 64490; 64491; 64492; J2001; J2250; Q9966; 99152

== ENCOUNTER → 2020-05-15 | Day surgery (SDC) | payer MEDICAID ==
[2020-05-14 08:57] VITALS: BMI 33.6
[~2020-05-15] MED LIST changes: +IV FLUID CONTINUATION 1,000 ML IV ONE; +LIDOCAINE 1% (10MG/ML) FOR IV START INTRADERMA ONE; +MIDAZOLAM 2 MG/2 ML VIAL ONE; +ROPIVACAINE 5MG/ML 20ML VIAL ONE; +fentaNYL (PF) 50 MCG/ML 2 ML AMP ONE
[2020-05-15 07:34] VITALS: RESP 20; TEMP 97
--- NOTE | 2020-05-15 08:31 | P.PCN ---
Date of Procedure: 05/15/20 Procedure(s) Performed: PREOPERATIVE DIAGNOSIS:1- Cervical Spondylosis with Facet Arthropathy.without myelopathy. 2- Cervical degenerative disc disease POSTOPERATIVE DIAGNOSIS: Same as preoperative diagnoses. PROCEDURES: Diagnostic bilateral bilateral C3, C4 , C5 , medial branch blocks, with fluoroscopic guidance (fluoroscopy images available in radiology department ) ( to target the facet joint at C3-4 , C4- 5 ) ANESTHESIA: moderate sedation with Versed 4 mg , and fentanyl 100 micrograms EBL: Minimal PROCEDURE INDICATION: The patient with neck pain secondary to cervical arthropathy unresponsive to more conservative treatments. PROCEDURE DESCRIPTION / TECHNIQUE: The patient was seen and identified in the preoperative area. Risks, benefits, complications, and alternatives were discussed with the patient, the patient agreed to proceed with the procedure and signed the consent. IV was started. Vital signs remained stable throughout the procedure. Patient was taken to the OR and time out was completed. The patient was placed in the prone position on the procedure table. A pillow was placed under the patients chest to increase the cervical interlaminar space. The cervical area was prepped and draped in the usual sterile fashion. Critical pause was taken. Vital signs were closely monitored during the procedure. Conscious sedation was used during the procedure to decrease patients anxiety. Using cross-table lateral fluoroscopy, the centroid of the trapezoid of right C3, C4 , C5 was identified, marked, and localized with 1% lidocaine 1 ml at each level for skin and Sub Q infiltrations . Subsequently, a 22 G 3 spinal needle was advanced guided by fluoroscopy to the centroid of the trapezoid of Right C3, C4 , C5, [place] tip position was confirmed at the centroid of the trapezoids of Right C3 , C4 , C5 , with anteroposterior fluoroscopy. Subsequently, 1,5 ml of preservative-free Ropivacaine 0.5% , and half ml of the was injected after negative aspiration for blood and CSF. [place] was then removed intact the same procedure was repeated at the left C3 , C4 , C5 ,levels. COMPLICATIONS: No acute complications. COMMENTS=( the plan was to do diagnostic block C3, C4, C5, and C6 levels, but I was not able to visualize the C6 vertebra, even though multiple attempts was done to visualize C6 vertebra, was not able to see C6 vertebra even we did a lot of pulling on the arms and also repositioning the C-arm and repositioning the patient, this reason I did only C3 levels which is C3-C4 and C5, only , I did not use any steroids because patient had side effects from the steroid. DISPOSITION / PLANS: The patient was placed in a supine position and transferred to the recovery area in a stable condition for observation and was discharged from the recovery room after meeting discharge criteria. Home discharge instructions given to the patient by the staff. The patient was reexamined prior to discharge. The patient will schedule a follow up in the clinic in 2-4 weeks.
[2020-05-15 08:49] VITALS: BP 122/75; PULSE 75
--- NOTE | 2020-05-15 16:45 | FL ---
EXAMINATION TYPE: FL guided pain mgmt statistic DATE OF EXAM: 05/15/2020 CLINICAL HISTORY: Neck pain. TECHNIQUE: Fluoroscopy. COMPARISON: None. FINDINGS: Fluoroscopic guidance was provided during pain relief procedure performed by Dr. Kirkland . A total of 30 seconds of fluoroscopic time was utilized during the procedure and 4 spot images are acquired. Images acquired shows needle localization at multiple levels in the cervical spine with lo ss of normal cervical curvature. IMPRESSION: As Above.
== END ==
LOC: ORPAIN 07:10
PROVIDERS: ATTEND Specialist
DX: M47.812 Spondylosis without myelopathy or radiculopathy, cervical region (principal); M50.30 Other cervical disc degeneration, unspecified cervical region
CPT/HCPCS: 64490; 64491; J2250; J3010; J2795; 99152

== ENCOUNTER → 2020-06-11 | Outpatient (CLI) | payer MEDICAID ==
[2020-06-11 10:14] VITALS: RESP 16
[2020-06-11 10:29] VITALS: BP 143/98; PULSE 80
--- NOTE | 2020-06-11 10:40 | P.PAINPG ---
Subjective Progress Note Date: 06/11/20 This is a follow-up visit for this 59 years old male with a chronic history of severe neck pain, radiation to the shoulder bilaterally, he is diagnosed with cervical degenerative disc disease and cervical spondylosis with cervical facet arthropathy, previously we have done cervical epidural steroid injection 3, patient reported that he had some benefit from the injection, but he continued to have severe neck pain with radiation to the shoulder bilaterally more prominent on the right side, he has decreased ability to elevate his arms above the shoulder area, and recently we did diagnostic medial branch block cervical area C3 C4 C5 bilateral , and he reported that his visual analog scale before the block was 7/10 , dropped to 2/10 after the block and the pain relief was for few days , and he did similar results on both diagnostic medial branch block , he reports ,that the neck pain is constant and increased with neck movement or with the using of his upper extremities, he denies any motor or sensory deficit, he denies any fever or night sweats, denies any change in bowel movement or urin ation, he continued to use [place] 5/325 when necessary Ultram 50 mg when necessary Robaxin 500 mg when necessary and Motrin he denies any side effect of the medication Objective - Vital Signs Vital signs: Vital Signs Temp Pulse 80 06/11/20 10:09 Resp 16 06/11/20 10:09 BP 143/98 06/11/20 10:09 Pulse Ox 95 06/11/20 10:09 - Exam -Constitutiona : Cooperative , not in acute distress . -HEENT : nech : supple , no Lymphadenopathy , normal thyroid size . : eyes : no ptosis , no icterus, no photophobia . - neurologic : Cranial nerve II to XII intact , no focal neurological deffecit . -psychatric : alert , oriented X 3 , appropriate affect , intact judgment and insight . -Lymphatic : no Lymphadenopathy . - musculoskeltal : Cervical Spine motor stregnth in the deltoid and biceps, normal right side , normal Left side motor stregnth biceps and the wrist extensors normal right side ,normal left side . motor stregnth in the triceps muscle . normal Right side , normal Left side deep tendon reflexes normal at the biceps , normal at Brachioradialis , normal at triceps. Normal sensation in the upper extremities cervical facet loading test= Positive Bilaterally Spurling test= positive bilaterally. Neck distraction test= positive bilaterally. Valeriy sign= positive bilaterally. Degrees abduction bilateral rotation of the shoulders bilaterally Lumber spine moter stegnth lower extremities ,thigh and legs 5/5 Right side , 5/5 Left side Assessment and Plan Plan: MRI of the cervical spine done in 06/06/2019 at [facility]= multilevel cervical foraminal stenosis multilevel cervical degenerative disc disease and multilevel cervical facet hypertrophy Assessment and Plan Plan: Assessment and plan=1-cervical degenerative disc disease. 2-cervical spondylosis with cervical facet arthropathy without myelopathy. She had positive results after the diagnostic medial branch block cervical area, it would be good candidate to have RFA of the medial branch C3 ,C4 ,C5 bilaterally Patient will continue to use his current medication Motrin ROBAXIN and Tylenol as prescribed by his primary care Time with Patient: Less than 30 PQRS Measure Charge Sheet Measure #130: Documentation of Current Meds in Medical Chart: Patient's medications documented in chart Measure #226: Tobacco Use: Screen & Cessation Intervention: Pt not a tobacco user Measure #111: Pneumonia Vaccination: Pneumococcal vaccine NOT administered or previously given Measure #47: Advance Care Plan: Advance care planning discussed & documented, pt chose/unable to give Measure #412: Opioid Treatment Agreement: No documentation of signed opioid treatment agreement Measure #408: Opioid Therapy Follow-up Evaluation: Patient had NO f/u eval minimum every 3 months during opioid therapy Measure #317: Preventitive Care & Scrn High Bld Press & F/U: Pre-hypertensive or hypertensive BP documented, pt will f/u with PCP Measure #128: Body Mass Index (BMI) Screening & Follow-up: BMI documented ABOVE normal parameters - f/u documented Measure #131: Pain Assessment & Follow-up: Pain positive & plan documented, Follow-up scheduled Measure #431: Unhealthy Alcohol Use Preventative Care & Scrn: Patient not identified as an unhealthy alcohol user PQRS Narrative: Smoking Status Never smoker Blood Pressure 143/98 Pain Intensity [Left Shoulder] 2 Pain Intensity [Right Shoulder 2 ] Scale Used Numeric (1 - 10) Hx Alcohol Use (MH) Yes: RARE Home Medications: Ambulatory Orders Aspirin EC [Ecotrin] 81 mg PO DAILY 12/26/14 Levothyroxine Sodium [Synthroid] 50 mcg PO DAILY 12/26/14 Acetaminophen [Tylenol Extra Strength] 500 - 1,000 mg PO Q8HR PRN 07/26/19 Ibuprofen [Motrin] 800 mg PO Q8HR PRN 07/26/19 traMADol HCl [Ultram] 50 mg PO Q12H PRN 07/26/19 Calcium Carbonate [Tums] 500 mg PO QID PRN 08/06/19 Ascorbic Acid [Vitamin C] 500 mg PO DAILY 08/08/19 Diazepam [Valium] 2.5 mg PO DAILY PRN 08/08/19 Esomeprazole Magnesium [NexIUM 24Hr] 20 mg PO BID 08/08/19 Glucos Sul 2Kcl/MSM/Chond/C/Mn [Glucosamine Chondroitin Cap] 1 cap PO DAILY 08/08/19 amLODIPine [Norvasc] 2.5 mg PO DAILY 08/08/19 HYDROcodone/APAP 5-325MG [[place] 5-325] 1 tab PO BID PRN 09/14/19 Melatonin 2.5 mg PO HS PRN 10/31/19 methocarbamoL [Robaxin] 500 mg PO HS PRN 11/21/19 Controlled Substance Measures - Controlled Substance Measures Is patient prescribed a controlled substance at discharge?: No
== END | disposition home or self-care (01) ==
LOC: PNWHC3 10:00
PROVIDERS: ATTEND Specialist
DX: M50.30 Other cervical disc degeneration, unspecified cervical region (principal); M47.812 Spondylosis without myelopathy or radiculopathy, cervical region; M46.96 Unspecified inflammatory spondylopathy, lumbar region; Z79.891 Long term (current) use of opiate analgesic; Z79.899 Other long term (current) drug therapy; Z79.82 Long term (current) use of aspirin
CPT/HCPCS: 99211

== ENCOUNTER → 2020-06-11 | Outpatient (CLI) | payer MEDICAID ==
[2020-06-11 12:07] LABS: HCT 44.6 % (39.0-53.0); HGB 15.2 gm/dL (13.0-17.5); MCH 31.2 pg (25.0-35.0); MCV 91.8 fL (80.0-100.0); Mean Platelet Volume 8.6; Platelet Count 155 k/uL (150-450); RBC 4.86 m/uL (4.30-5.90); RDW 12.8 % (11.5-15.5); WBC 6.7 k/uL (3.8-10.6)
[2020-06-11 18:15] LABS: African American GFR (CKD) 94.4 (60.0-200.0); Albumin 4.4 g/dL (3.80-4.90); Albumin/Globulin Ratio 1.76 (1.60-3.17); Anion Gap 7.8 mmol/L (4.00-12.00); Calcium 9.7 mg/dL (8.7-10.3); Carbon Dioxide 26.2 mmol/L (21.6-31.8); Chol/HDL Ratio 5.56; Globulin 2.5 g/dL (1.6-3.3); Non-African American GFR(CKD) 81.4 (60.0-200.0); Potassium 4.3 mmol/L (3.5-5.5); Total Bilirubin 0.7 mg/dL (0.3-1.2); Total Protein 6.9 g/dL (6.2-8.2)
[2020-06-11 18:23] LABS: Prostate Specific Antigen 5.4 ng/mL (0.0-4.5); T4, Free (Free Thyroxine) 1.1 ng/dL (0.80-1.80)
== END | disposition home or self-care (01) ==
LOC: LABWHC1 10:52
PROVIDERS: ATTEND Nurse Practitioner
DX: R97.20 Elevated prostate specific antigen [PSA] (principal); E03.9 Hypothyroidism, unspecified; I10 Essential (primary) hypertension
CPT/HCPCS: 36415; 80053; 80061; 82306; 84153; 84439; 84443; 85027

== ENCOUNTER 2020-07-03 12:03 | Day surgery (SDC) | payer MEDICAID ==
[2020-07-01 13:42] VITALS: BMI 33.3
[~2020-07-03 12:03] MED LIST changes: -IV FLUID CONTINUATION 1,000 ML IV ONE; -LIDOCAINE 1% (10MG/ML) FOR IV START INTRADERMA ONE; -MIDAZOLAM 2 MG/2 ML VIAL ONE; -ROPIVACAINE 5MG/ML 20ML VIAL ONE; -fentaNYL (PF) 50 MCG/ML 2 ML AMP ONE
[2020-07-03 13:06] VITALS: RESP 16; TEMP 98.1
[2020-07-03] MEDS ORDERED: LIDOCAINE 1% (10MG/ML) FOR IV START INTRADERMA ONE (13:06)
[2020-07-03] MEDS ORDERED: fentaNYL (PF) 50 MCG/ML 2 ML AMP ONE (13:42)
[2020-07-03] MEDS ORDERED: ROPIVACAINE 5MG/ML 20ML VIAL ONE (13:42)
[2020-07-03] MEDS ORDERED: MIDAZOLAM 2 MG/2 ML VIAL ONE (13:42)
--- NOTE | 2020-07-03 14:20 | P.PCN ---
Date of Procedure: 07/03/20 Procedure(s) Performed: PREOPERATIVE DIAGNOSIS: Cervical spondylosis with Facet Arthropathy without myelopathy. POSTOPERATIVE DIAGNOSIS: Cervical spondylosis with Facet Arthropathy without myelopathy. PROCEDURES: Radiofrequency thermocoagulation, bilateral C3, C4, C5, medial branch with Fluroscopy [place](fluoroscopy was available in etiology department ) (to denervate the facet joint at bilateral C3- 4 , C4- 5 ) ANESTHESIA: moderate sedation with fentanyl 100 micrograms and Versed 3 mg EBL: Minimal PROCEDURE INDICATION: The patient with neck pain secondary to cervical arthropathy who had more than 50% relief of her pain with previous diagnostic c ervical medial branch block. PROCEDURE DESCRIPTION / TECHNIQUE: The patient was seen and identified in the preoperative area. Risks, benefits, complications, and alternatives were discussed with the patient, the patient agreed to proceed with the procedure and signed the consent. IV was started. Vital signs remained stable throughout the procedure. Patient was taken to the OR and time out was completed. The patient was placed in the prone position on the procedure table. A pillow was placed under the patients chest to increase the cervical interlaminar space. The cervical area was prepped and draped in the usual sterile fashion. Critical pause was taken. Vital signs were closely monitored during the procedure. Conscious sedation was used during the procedure to decrease patients anxiety. Using cross-table lateral fluoroscopy, the centroid of the trapezoid of right C3, C4, C5, were identified, marked, and localized with 1% lidocaine. Subsequently, a 20 [id number] radiofrequency cannula with a 10-mm active tip was advanced guided by fluoroscopy to the centroid of the trapezoid of the right C3, C4, C5, . Needle tip position was confirmed at the centroid of the trapezoids of right C3, C4, C5, with anteroposterior fluoroscopy. Each site then underwent sensory testing at 50 Hz and 0 to 1 volt and motor testing at 2 Hz and 0 to 3 volt with local stimulation, but no radicular symptoms down the arm. Thereafter each sites underwent radiofrequency thermocoagulation at 80 degrees celsius for 90 seconds after injecting 0.5 ml of PF Ropivacaine 0.5 %. After thermocoagulation, was injected at the right C3, C4, C5, levels after negative aspiration of CSF and blood and with no paresthesias. Cannulas were retracted while injecting lidocaine 1% until the needle is out. Then the exact same procedure was repeated for the left side and landed the RFA of the left side medial branches at C3 , C4 , C5 , and after I was done easily moved Skin was cleansed and bandages were applied. COMPLICATIONS: No acute complications. DISPOSITION / PLANS: The patient was placed in a supine position and transferred to the recovery area in a stable condition for observation and was discharged from the recovery room after meeting discharge criteria. Home discharge instructions given to the patient by the staff. The patient was reexamined prior to discharge. The patient will schedule a follow up in the clinic in 2-4 weeks.
--- NOTE | 2020-07-03 14:26 | FL ---
EXAMINATION TYPE: FL guided pain mgmt statistic DATE OF EXAM: 07/03/2020 HISTORY: Fluoroscopy time 18 seconds of fluoroscopy provided. IMPRESSION: 1. Fluoroscopy time.
[2020-07-03] MEDS ORDERED: IV FLUID CONTINUATION 600 ML IV ONE (14:31)
[2020-07-03 14:41] VITALS: BP 141/90; PULSE 73
== END 2020-07-03 14:56 | disposition home or self-care (01) ==
LOC: ORPAIN 12:03
PROVIDERS: ATTEND Specialist
DX: M47.812 Spondylosis without myelopathy or radiculopathy, cervical region (principal); M50.30 Other cervical disc degeneration, unspecified cervical region; Z79.82 Long term (current) use of aspirin; Z91.012 Allergy to eggs
CPT/HCPCS: 64633; 64634; J2250; J3010; J2795; 99152; 99153

== ENCOUNTER → 2020-07-23 | Outpatient (CLI) | payer MEDICAID ==
[2020-07-23 08:12] VITALS: BP 146/90; PULSE 80; RESP 18; TEMP 98.1
--- NOTE | 2020-07-30 11:46 | P.PN ---
Subjective Progress Note Date: 07/23/20 This is a follow-up visit for this 59 years old male with a chronic history of severe neck pain, radiation to the shoulder bilaterally, he is diagnosed with cervical degenerative disc disease ,and cervical spondylosis with cervical facet arthropathy, previously we have done cervical epidural steroid injection 3, patient reported that he had some benefit from the injection, but he continued to have severe neck pain with radiation to the shoulder bilaterally more prominent on the right side, he has decreased ability to elevate his arms above the shoulder area, and recently we did RFA of the medial branch cervical area, he reported that his neck pain improved significantly but he continued to have s ome shoulder pain, shoulder pain increases with upper extremity abduction and abduction , rotation of the upper extremity, he denies any motor or sensory deficit, he denies any fever or night sweats, denies any change in bowel movement or urination, he continued to use [place] 5/325 when necessary Ultram 50 mg when necessary ,Robaxin 500 mg when necessary and Motrin he denies any side effect of the medication Objective - Exam -Constitutiona : Cooperative , not in acute distress . -HEENT : nech : supple , no Lymphadenopathy , normal thyroid size . : eyes : no ptosis , no icterus, no photophobia . - neurologic : Cranial nerve II to XII intact , no focal neurological deffecit . -psychatric : alert , oriented X 3 , appropriate affect , intact judgment and insight . -Lymphatic : no Lymphadenopathy . - musculoskeltal : Cervical Spine motor stregnth in the deltoid and biceps, normal right side , normal Left side motor stregnth biceps and the wrist extensors normal right side ,normal left side . motor stregnth in the triceps muscle . normal Right side , normal Left side deep tendon reflexes normal at the biceps , normal at Brachioradialis , normal at triceps. Normal sensation in the upper extremities cervical facet loading test= Positive Bilaterally Spurling test= positive bilaterally. Neck distraction test= positive bilaterally. Valeriy sign= positive bilaterally. Degrees abduction bilateral rotation of the shoulders bilaterally Abduction and adduction or rotation of the sh oulder associated with pain Lumber spine moter stegnth lower extremities ,thigh and legs 5/5 Right side , 5/5 Left side Assessment and Plan Plan: MRI of the cervical spine done in 06/06/2019 at [facility]= multilevel cervical foraminal stenosis multilevel cervical degenerative disc disease and multilevel cervical facet hypertrophy Assessment and plan= 1-cervical degenerative disc disease. 2-cervical spondylosis with cervical facet arthropathy without myelopathy. 3-bilateral shoulder arthralgia. Patient reported that his neck pain improved significantly after RFA of the medial branch cervical area, he continued to have shoulder pain bilaterally, patient will be referred for evaluation by orthopedic surgeon Dr. Cao patient already seen Dr. Cao previously, he would prefer to follow up with him, patient could benefit from increased the frequency of the muscle relaxant prescription for Robaxin 500 mg twice a day dispense 60 with 2 refills given and patient will follow up in the pain clinic when necessary Measure #130: Documentation of Current Meds in Medical Chart: Patient's medications documented in chart Measure #226: Tobacco Use: Screen & Cessation Intervention: Pt not a tobacco user Measure #111: Pneumonia Vaccination: Pneumococcal vaccine NOT administered or previously given Measure #47: Advance Care Plan: Advance care planning discussed & documented, pt chose/unable to give Measure #412: Opioid Treatment Agreement: No documentation of signed opioid treatment agreement Measure #408: Opioid Therapy Follow-up Evaluation: Patient had NO f/u eval minimum every 3 months during opioid therapy Measure #317: Preventitive Care & Scrn High Bld Press & F/U: Pre-hypertensive or hypertensive BP documented, pt will f/u with PCP Measure #128: Body Mass Index (BMI) Screening & Follow-up: BMI documented ABOVE normal parameters - f/u documented Measure #131: Pain Assessment & Follow-up: Pain positive & plan documented, Follow-up scheduled Measure #431: Unhealthy Alcohol Use Preventative Care & Scrn: Patient not identi fied as an unhealthy alcohol user Time with Patient: Less than 30
== END | disposition home or self-care (01) ==
LOC: PNWHC3 07:30
PROVIDERS: ATTEND Specialist
DX: M48.02 Spinal stenosis, cervical region (principal); M50.30 Other cervical disc degeneration, unspecified cervical region; M47.812 Spondylosis without myelopathy or radiculopathy, cervical region; M25.512 Pain in left shoulder; M25.511 Pain in right shoulder
CPT/HCPCS: 99211

== ENCOUNTER → 2020-12-22 | Outpatient (CLI) | payer MEDICAID ==
--- NOTE | 2020-12-22 16:04 | US ---
EXAMINATION TYPE: US carotid duplex BILAT DATE OF EXAM: 12/22/2020 COMPARISON: US CLINICAL HISTORY: Z86.73 personal hx of TIA. 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 EXAM MEASUREMENTS: RIGHT: Peak Systolic Velocity (PSV) cm/sec ----- Right CCA: 72.69 ----- Right ICA: 59.8 ----- Right ECA: 122.1 mid ECA ICA/CCA ratio: 0.8 RIGHT: End Diastole cm/sec ----- Right CCA: 23.2 ----- Right ICA: 18.0 ----- Right ECA: 26.8 LEFT: Peak Systolic Velocity (PSV) cm/sec ----- Left CCA: 69.4 ----- Left ICA: 50.3 ----- Left ECA: 93.5 ICA/CCA ratio: 0.7 LEFT: End Diastole cm/sec ----- Left CCA: 25.8 ----- Left ICA: 14.5 ----- Left ECA: 20.2 VERTEBRALS (direction of flow): Right Vertebral: Antegrade Left Vertebral: Antegrade Rhythm: Normal Mild to moderate intimal wall changes are noted at bilateral carotid bifurcation, but PSV is wnl bila terally. Grayscale, color Doppler, spectral Doppler imaging performed of the carotid arteries. Waveform analys is does not show significant stenosis of the internal carotid arteries. Incidental finding of enlarged thyroid gland. Patient stated has been taking thyroid medication x 5 y ears. IMPRESSION: No hemodynamic significant stenosis of the proximal internal carotid arteries by Doppler criteria, an indirect measurement of carotid stenosis. Criteria for Assigning % of Stenosis / Diameter reduction (Estimation based on the indirect measurements of the internal carotid artery velocities (ICA PSV). 1. Normal (no stenosis)=ICA PSV < 125 cm/s: ratio < 2.0: ICA EDV<40 cm/s. 2. Less than 50% stenosis=ICA PSV < 125 cm/s: ratio < 2.0: ICA EDV<40 cm/s. 3. 50 to 69% stenosis=ICA PSV of 125 to 230 cm/s: ration 2.0 ? 4.0: ICA EDV 40-100 cm/s. 4. Greater than 70% stenosis to near occlusion= ICA PSV > 230 cm/s: ratio > 4.0: ICA EDV > 100 cm/s. 5. Near occlusion= ICA PSV velocities may be low or undetectable: variable ratio and ICA EDV. 6. Total occlusion=unable to detect flow.
--- NOTE | 2020-12-23 11:55 | ECHOF ---
Referral Reason:Z86.73 personal hx of TIA MEASUREMENTS -------- HEIGHT: 182.9 cm WEIGHT: 113.4 kg BP: RVIDd: 3.8 cm (< 3.3) IVSd: 1.4 cm (0.6 - 1.1) LVIDd: 4.4 cm (3.9 - 5.3) LVPWd: 1.3 cm (0.6 - 1.1) IVSs: 2.1 cm LVIDs: 2.4 cm LVPWs: 1.8 cm LAESV Index (A-L): 39.97 ml/m Ao Diam: 3.5 cm (2.0 - 3.7) AV Cusp: 1.4 cm (1.5 - 2.6) MV EXCURSION: 12.685 mm (> 18.000) MV EF SLOPE: 51 mm/s (70 - 150) EPSS: 1.4 cm MV E Speedy: 0.50 m/s MV DecT: 348 ms MV A Speedy: 0.66 m/s MV E/A Ratio: 0.76 AR PHT: 564 ms RAP: 5.00 mmHg RVSP: 21.01 mmHg FINDINGS -------- Sinus rhythm. This was a technically adequate study. The left ventricular size is normal. There is moderate concentric left ventricular hypertrophy. O verall left ventricular systolic function is normal with, an EF between 55 - 60 %. The diastolic fi lling pattern is normal for the age of the patient 10.54. The right ventricle is mild to moderately enlarged. LA is moderately dilated 34-39 ml/m2 The right atrial size is normal. Interatrial and interventricular septum intact. The aortic valve is trileaflet and appears structurally normal. There is mild aortic valve sclerosi s. There is mild aortic regurgitation. Boyv-xq-aayimelp mitral regurgitation is present. Mild tricuspid regurgitation present. There is no evidence of pulmonary hypertension. The right v entricular systolic pressure, as measured by Doppler, is 21.01mmHg. There is no pulmonic regurgitation present. The aortic root size is normal. IVC Not well visulized. There is no pericardial effusion. CONCLUSIONS -------- 1. The left ventricular size is normal. 2. There is moderate concentric left ventricular hypertrophy. 3. Overall left ventricular systolic function is normal with, an EF between 55 - 60 %. 4. The diastolic filling pattern is normal for the age of the patient 10.54 5. The right ventricle is mild to moderately enlarged. 6. LA is moderately dilated 34-39 ml/m2 7. There is mild aortic valve sclerosis. 8. There is mild aortic regurgitation. 9. Tije-yr-ccevpwii mitral regurgitation is present. 10. Mild tricuspid regurgitation present. BUSINESS LIAISON MANAGER: Octavia Loomis RDCS
== END | disposition home or self-care (01) ==
LOC: RADECHMAIN 14:01
PROVIDERS: ATTEND Family Medicine
DX: I08.3 Combined rheumatic disorders of mitral, aortic and tricuspid valves (principal); Z86.73 Personal history of transient ischemic attack (TIA), and cerebral infarction without residual deficits
CPT/HCPCS: 93306; 93880

== ENCOUNTER → 2021-01-02 | Outpatient (CLI) | payer MEDICAID ==
--- NOTE | 2021-01-03 00:35 | MR ---
EXAMINATION TYPE: MR shoulder RT wo con DATE OF EXAM: 01/02/2021 COMPARISON: None HISTORY: Right shoulder pain for 2 years, limited range of motion. Multiplanar multiecho imaging of the right shoulder was performed without contrast. FINDINGS: There is severe narrowing of the shoulder joint space. There is shoulder joint effusion. Subscapulari s tendon is intact. The biceps tendon is intact. There is some thickening and increased signal in the supraspinatus tendon. There is no retraction. There is subchondral cystic changes in the superior as pect of the humeral head that measures 2.5 x 0.7 cm. There is small cystic changes also in the greate r tuberosity of the humerus. I see no fracture line. The glenoid diego appear intact. There is some h ypertrophic mild spur formation on the humeral head. IMPRESSION: Intrasubstance tear of the supraspinatus tendon over the humeral head. No retraction. Shoulder joint effusion consistent with some synovitis. Moderate osteoarthritic narrowing of the shoulder joint spac e. There is subchondral cystic changes in the humeral head and chronic avascular necrosis is probably present. No acute fracture seen.
== END | disposition home or self-care (01) ==
LOC: RADMRIMAIN 18:31
PROVIDERS: ATTEND Orthopaedic Surgery
DX: M19.011 Primary osteoarthritis, right shoulder (principal); M75.111 Incomplete rotator cuff tear or rupture of right shoulder, not specified as traumatic

== ENCOUNTER → 2021-02-19 | Outpatient (CLI) | payer MEDICAID ==
[2021-02-19 14:41] LABS: Basophils % (A) 1 %; Eosinophils # (A) 0.2 k/uL (0-0.7); Eosinophils % (A) 4 %; HCT 43.2 % (39.0-53.0); HGB 15.4 gm/dL (13.0-17.5); Lymphocytes # (A) 1.6 k/uL (1.0-4.8); Lymphocytes % (A) 33 %; MCH 32.8 pg (25.0-35.0); MCHC 35.8 g/dL (31.0-37.0); MCV 91.7 fL (80.0-100.0); Mean Platelet Volume 8.2; Monocytes # (A) 0.2 k/uL (0-1.0); Monocytes % (A) 5 %; Neutrophils # (A) 2.7 k/uL (1.3-7.7); Neutrophils % (A) 56 %; Platelet Count 151 k/uL (150-450); RDW 12.6 % (11.5-15.5); WBC 4.9 k/uL (3.8-10.6)
[2021-02-19 14:56] LABS: Potassium 4.1 mmol/L (3.5-5.1)
== END | disposition home or self-care (01) ==
LOC: LABPAT 13:16
PROVIDERS: ATTEND Orthopaedic Surgery
DX: Z01.818 Encounter for other preprocedural examination (principal); M75.41 Impingement syndrome of right shoulder
CPT/HCPCS: 36415; 80051; 85025; 93005

== ENCOUNTER 2021-02-26 07:43 | Day surgery (SDC) | payer MEDICAID ==
[2021-02-24 12:18] VITALS: BMI 33.9
--- NOTE | 2021-02-25 17:58 | HP ---
HISTORY AND PHYSICAL REASON FOR ADMISSION: Surgery is 02/26/2021 Jose Alberto is a 60-year-old gentleman seen with progressive right shoulder pain. Treatment options were discussed. He elected to proceed with arthroscopy. Consent was obtained. PAST MEDICAL HISTORY: Gastroesophageal reflux disease and hypothyroidism. PAST SURGICAL HISTORY: None. MEDICATIONS: Nexium, Synthroid, Robaxin. ALLERGIES: CORTISONE. SOCIAL HISTORY: He denies tobacco use. PHYSICAL EVALUATION OF THE RIGHT SHOULDER: Flexion is 150 degrees, abduction is 130 degrees, external rotation is 30 degrees with weakness. There is tenderness along the anterior lateral acromion and rotator cuff insertion site. Impingement positive at 90 degrees. Cross adduction sign is positive. Drop-arm sign is positive. Distal neurovascular exam is intact. RADIOGRAPHS: Radiographs of the right shoulder revealed a type 2 acromion, acromioclavicular joint osteoarthritis and cystic changes of the tuberosity. Right shoulder MRI revealed a partial rotator cuff tear and moderate osteoarthritic changes. IMPRESSION: 1. Right shoulder impingement with partial rotator cuff tear. 2. Right shoulder osteoarthritis. 3. Hypothyroidism. PLAN: Right shoulder arthroscopy with subacromial decompression, possible arthroscopic rotator cuff repair, Pj procedure and debridement. Surgery is 02/26/2021. MMODL / IJN: [id number] /
[~2021-02-26 07:43] MED LIST changes: +DEXAMETHASONE SOD PHOSPHATE 4 MG/ML 1 ML VIAL IV ONE; +HYDROmorphone 0.5 MG/0.5 ML SYRINGE IVP PRN; +MIDAZOLAM 2 MG/2 ML VIAL IV PRN; +ONDANSETRON 4 MG/2 ML VIAL IVP ONE
[2021-02-26] MEDS ORDERED: MIDAZOLAM 2 MG/2 ML VIAL IVP ONE (08:40)
[2021-02-26] MEDS ORDERED: ROPIVACAINE 5 MG/ML 30 ML VIAL ONE (09:22)
[2021-02-26] MEDS ORDERED: SUCCINYLCHOLINE CHLORIDE 100 MG/5 ML SYR IV ONE (09:22)
[2021-02-26] MEDS ORDERED: fentaNYL (PF) 50 MCG/ML 2 ML AMP ONE (09:22)
[2021-02-26] MEDS ORDERED: MIDAZOLAM 2 MG/2 ML VIAL ONE (09:22)
[2021-02-26] MEDS ORDERED: LIDOCAINE 1% INJ 10MG/ML (20 ML MDV) ONE (09:22)
[2021-02-26] MEDS ORDERED: PROPOFOL 10 MG/ML 20 ML VIAL IV ONE (09:22)
[2021-02-26] MEDS ORDERED: LACTATED RINGERS 1,000 ML IV ONE (10:05)
--- NOTE | 2021-02-26 10:58 | P.OP ---
Date of Procedure: 02/26/21 Preoperative Diagnosis: Right shoulder impingement Postoperative Diagnosis: 1. Right shoulder rotator cuff tear 2. Right shoulder impingement 3. Right shoulder acromioclavicular joint osteoarthritis 4. Right shoulder partial long head biceps tendon tear 5. Right shoulder grade 4 glenohumeral joint chondromalacia/osteoarthritis Procedure(s) Performed: 1. Right shoulder arthroscopic rotator cuff repair 2. Right shoulder arthroscopic subacromial decompression 3. Right shoulder arthroscopic Pj procedure 4. Right shoulder arthroscopic biceps tenotomy Anesthesia: GETA, regional (Interscalene block) Surgeon: Rupert Balderas [employer] Sales Manager #1: Enzo Rainey Estimated Blood Loss (ml): 9 Pathology: none sent Condition: stable Disposition: PACU Indications for Procedure: 60-year-old gentleman seen with progressive right shoulder pain. After fany atment options were discussed, he elected to proceed with arthroscopy. Operative Findings: See description of procedure Description of Procedure: Patient underwent an interscalene block by department of anesthesia. The patient was then taken to the operative suite. The patient underwent a general anesthetic by the department of anesthesia. The patient was placed into a lateral position and secured. There was appropriate padding of the bony prominence. Right shoulder was then prepped and draped in normal sterile orthopedic fashion. We placed the extremity in 10 pounds of longitudinal traction. A posterior incision was now made for a posterior working portal site. The trocar and cannula were inserted into the glenohumeral joint. Arthroscopy was initiated. Spinal needle was now inserted anteriorly, to ascertain the anterior working portal site. An incision was now made in that area, a trocar was inserted followed by a probe. There were grade 4 chondromalacia changes involving both the humeral head and glenoid fossa, essentially [id number] arthritis. There was partial tearing along head biceps tendon is hyperemia. There was superficial tearing of the superior labrum. I performed an arthroscopic biceps tenotomy. I debrided the superficial labral tear getting down to stable labral tissue. The residual labrum was now probed and found to be stable. At this point instruments were removed from the glenohumeral joint. Utilizing the posterior working portal site, the trocar and cannula were inserted into the subacromial space. Arthroscopy initiated. I made an incision 2 fingerbreadths lateral to the acromion. I introduced my trocar followed by my [employer] ablator. I now began ablating thick subacromial bursal tissue, which exposed the undersurface of the anterior acromion. There was diminished subacromial space. There was a very prominent anterior acromion. A motorized bur was introduced and a subacromial decompression was performed. I also excised some osteophytes off the inferior aspect of the distal clavicle. The AC joint was visualized and noted to be fairly arthritic. The motorized bur was intro duced in the anterior portal site and a Pj procedure was performed without difficulty, decompressing the AC joint nicely. I turned my attention to the rotator cuff. There was significant partial tearing of the rotator cuff tendon along the posterior aspect of the distal supraspinatus. I cleaned that up with a motorized shaver. I probed the area and found a intrasubstance tear which measured approximately 1 cm involving the posterior aspect of the distal supraspinatus. I repaired that with 2 simple interrupted sutures. I probed the area and noted a nice repair of the intrasubstance tear. Instruments now removed from the portal sites. All portal sites were approximated with nylon suture. Sterile dressings were applied followed by a shoulder sling. Enzo SANTORO assisted in this case. The patient was awakened, transferred to a bed, and taken to recovery in stable condition.
[2021-02-26 11:03] VITALS: TEMP 98
[2021-02-26 11:16] VITALS: RESP 16
[2021-02-26] MEDS ORDERED: ONDANSETRON 4 MG/2 ML VIAL ONE (11:44)
[2021-02-26] MEDS ORDERED: ONDANSETRON 4 MG/2 ML VIAL IVP ONE (11:47)
[2021-02-26] MEDS ORDERED: DEXAMETHASONE SOD PHOSPHATE 4 MG/ML 1 ML VIAL IVP ONE (11:48)
[2021-02-26 12:16] VITALS: BP 131/86; PULSE 96
--- NOTE | 2021-02-26 15:14 | P.ANPRN ---
Procedure Note - Anesthesia - Nerve Block Performed Right Interscalene Single Time Out Performed: Yes ([id number]) Date of Procedure: 02/26/21 Procedure Start Time: 08:40 Procedure Stop Time: 08:45 Location of Patient: PreOp Indication: Acute Post-Operative Pain, Requested by Surgeon Specifically requested for management of pain by DrGeovany: Rupert Balderas Sedation Type: Sedate with meaningful contact maintained Preparation: Sterile Prep Position: Supine Catheter: None Needle Types: Pajunk Needle Gauge: 21 Ultrasound used to visualize needle placement: Yes Ultrasound used to observe medication spread: Yes Injectate: 0.5% Ropivacaine (see comment for volume) (30cc) Blood Aspirated: No Pain Paresthesia on Injection Noted: No Resistance on Injection: Normal Image Stored and Saved: Yes Events: Uneventful and Well Tolerated
== END 2021-02-26 12:57 | disposition home or self-care (01) ==
LOC: OR 07:43
PROVIDERS: ATTEND Orthopaedic Surgery
DX: M19.011 Primary osteoarthritis, right shoulder (principal); I10 Essential (primary) hypertension; E07.9 Disorder of thyroid, unspecified; G43.909 Migraine, unspecified, not intractable, without status migrainosus; K21.9 Gastro-esophageal reflux disease without esophagitis; K44.9 Diaphragmatic hernia without obstruction or gangrene; Z86.73 Personal history of transient ischemic attack (TIA), and cerebral infarction without residual deficits; Z79.899 Other long term (current) drug therapy; Z88.8 Allergy status to other drugs, medicaments and biological substances
CPT/HCPCS: 64415; 76942; 29828; 29827; 29826; J2250; J1100; J0690; J2405; J2001; J3010; J2795; J0330; J2704

== ENCOUNTER → 2021-08-14 | Outpatient (CLI) | payer MEDICAID | END | disposition home or self-care (01) | LOC: LABWHC1 13:30 | PROVIDERS: ATTEND Family Medicine | DX: Z20.822 Contact with and (suspected) exposure to COVID-19 (principal); N40.0 Benign prostatic hyperplasia without lower urinary tract symptoms | CPT/HCPCS: 36415; 84153; 86769 ==

== ENCOUNTER → 2021-10-06 | Outpatient (CLI) | payer MEDICAID | END | disposition home or self-care (01) | LOC: LABWHC1 17:23 | PROVIDERS: ATTEND Family Medicine | DX: Z53.9 Procedure and treatment not carried out, unspecified reason (principal) ==

== ENCOUNTER → 2022-04-20 | Outpatient (CLI) | payer MEDICAID ==
[2022-04-20 23:03] LABS: HGB 14.5 g/dL (13.0-17.0); MCH 31.1 pg (27.0-32.0); MCHC 33.7 g/dL (32.0-37.0); MCV 92.3 fL (80.0-97.0); Mean Platelet Volume 13.2 fL (9.5-12.2); NRBC Per 100 WBC 0 /100 WBCS (0.0-0.0); Platelet Count 160 X 10*3/uL (140-440); RBC 4.66 X 10*6/uL (4.40-5.60); RDW 12.6 % (11.5-14.5); WBC 5.72 X 10*3/uL (4.50-10.00)
[2022-04-21 00:11] LABS: African American GFR (CKD) 97.2 (60.0-200.0); Albumin 4.5 g/dL (3.8-4.9); Albumin/Globulin Ratio 1.68 (1.60-3.17); Anion Gap 11.1 mmol/L (10.00-18.00); BUN/Creat Ratio 11.09 Ratio (12.00-20.00); Blood Urea Nitrogen 10.7 mg/dL (9.0-27.0); Calcium 9.2 mg/dL (8.7-10.3); Globulin 2.7 g/dL (1.6-3.3); Non-African American GFR(CKD) 83.8 (60.0-200.0); Potassium 4.2 mmol/L (3.5-5.5); T4, Free (Free Thyroxine) 1.08 ng/dL (0.800-1.800); Total Bilirubin 0.4 mg/dL (0.30-1.20); Total Protein 7.2 g/dL (6.2-8.2)
== END | disposition home or self-care (01) ==
LOC: LABWHC1 16:23
PROVIDERS: ATTEND Family Medicine
DX: I10 Essential (primary) hypertension (principal); E03.9 Hypothyroidism, unspecified
CPT/HCPCS: 36415; 80053; 84439; 84443; 84481; 85027

== ENCOUNTER → 2022-09-14 | Outpatient (CLI) | payer MEDICAID ==
--- NOTE | 2022-09-14 14:12 | XR ---
EXAMINATION TYPE: XR chest 2V DATE OF EXAM: 09/14/2022 COMPARISON: 08/08/2019 TECHNIQUE: PA and lateral views submitted. HISTORY: cough, chest pain FINDINGS: The lungs are clear and there is no pneumothorax, pleural effusion, or focal pneumonia. Size normal . No overt failure. Hyperinflation suggests COPD. Hypertrophic and degenerative changes of the spine. IMPRESSION: 1. No acute process.
== END | disposition home or self-care (01) ==
LOC: RADXRWHC 13:15
PROVIDERS: ATTEND Family Medicine
DX: R05.9 Cough, unspecified (principal); R07.9 Chest pain, unspecified
CPT/HCPCS: 71046

== ENCOUNTER → 2022-09-17 | Outpatient (CLI) | payer MEDICAID ==
[2022-09-17 18:50] LABS: HCT 43.7 % (39.6-50.0); HGB 14.5 g/dL (13.0-17.0); MCH 30.3 pg (27.0-32.0); MCHC 33.2 g/dL (32.0-37.0); MCV 91.2 fL (80.0-97.0); Mean Platelet Volume 12.4 fL (9.5-12.2); NRBC Per 100 WBC 0 /100 WBCS (0.0-0.0); Platelet Count 171 X 10*3/uL (140-440); RBC 4.79 X 10*6/uL (4.40-5.60); RDW 12.6 % (11.5-14.5)
[2022-09-17 19:18] LABS: ALT 23 U/L (10-49); AST 17 U/L (14-35); African American GFR (CKD) 92.4 (60.0-200.0); Albumin 4.3 g/dL (3.8-4.9); Albumin/Globulin Ratio 1.59 (1.60-3.17); Alkaline Phosphatase 81 U/L (41-126); Blood Urea Nitrogen 10.9 mg/dL (9.0-27.0); Calcium 9.1 mg/dL (8.7-10.3); Carbon Dioxide 26.1 mmol/L (20.0-27.5); Chloride 103 mmol/L (96-109); Chol/HDL Ratio 5.14 Ratio; Globulin 2.7 g/dL (1.6-3.3); Glucose 94 mg/dL (70-110); LDL Cholesterol,Calculated 117.8 mg/dL (0.0-131.0); Non-African American GFR(CKD) 79.7 (60.0-200.0); Potassium 4.3 mmol/L (3.5-5.5); Sodium 139 mmol/L (135-145)
== END | disposition home or self-care (01) ==
LOC: LABWHC1 11:03
PROVIDERS: ATTEND Family Medicine
DX: I10 Essential (primary) hypertension (principal); N40.0 Benign prostatic hyperplasia without lower urinary tract symptoms
CPT/HCPCS: 36415; 80053; 80061; 84153; 84443; 84480; 85027

== ENCOUNTER 2022-10-22 11:47 | Day surgery (SDC) | payer MEDICAID ==
[2022-10-19 10:58] VITALS: BMI 31.3
[~2022-10-22 11:47] MED LIST changes: -DEXAMETHASONE SOD PHOSPHATE 4 MG/ML 1 ML VIAL IV ONE; -HYDROmorphone 0.5 MG/0.5 ML SYRINGE IVP PRN; -MIDAZOLAM 2 MG/2 ML VIAL IV PRN; -ONDANSETRON 4 MG/2 ML VIAL IVP ONE
[2022-10-22 12:22] LABS: Glucose,Whole Blood 84 mg/dL (70-110)
[2022-10-22 12:40] VITALS: TEMP 96.8
[2022-10-22 14:27] LABS: Glucose,Whole Blood 86 mg/dL (70-110)
[2022-10-22] MEDS ORDERED: PROPOFOL 10 MG/ML 20 ML VIAL IV ONE (15:01)
--- NOTE | 2022-10-22 15:19 | P.PCN ---
Date of Procedure: 10/22/22 Procedure(s) Performed: BRIEF HISTORY: Patient is a 62-year-old pleasant white male scheduled for an elective colonoscopy as a part of screening for colon cancer. PROCEDURE PERFORMED: Colonoscopy with biopsy. PREOPERATIVE DIAGNOSIS: Screening for colon cancer. IV sedation per Anesthesia. PROCEDURE: After informed consent was obtained, the patient, was brought into the endoscopy unit. IV sedation was administered by Anesthesia under continuous monitoring. Digital rectal examination was normal. Initially the Olympus CF-160 flexible video colonoscope was then inserted in the rectum, gradually advanced into the cecum without any difficulty. Careful examination was performed as the scope was gradually being withdrawn. Ileocecal valve and the appendiceal orifice were visualized and appeared normal. Prep was excellent. Mucosa of the cecum, ascending colon, transverse colon, appeared normal. In the descending colon there was a 3-4 mm sessile polyp was removed by cold biopsy. Scattered left sided diverticulosis seen. Rest of the descending colon, sigmoid colon, and rectum appeared normal. Retroflexion was performed in the rectum and no lesions were seen. The patient tolerated the procedure well. IMPRESSION: 3-4 mm sessile descending colon polyp status post cold biopsy Scattered sigmoid diverticulosis RECOMMENDATIONS: Findings of this examination were discussed with the patient as well as his family. He was advised to follow with the biopsy results. If the biopsy results adenoma he can have a repeat colonoscopy in 5 years.
[2022-10-22 15:28] VITALS: RESP 16
[2022-10-22 15:40] VITALS: BP 133/84; PULSE 69
== END 2022-10-22 16:09 | disposition home or self-care (01) ==
LOC: ORWHC2ENDO 11:47
PROVIDERS: ATTEND Internal Medicine Gastroenterology
DX: Z12.11 Encounter for screening for malignant neoplasm of colon (principal); D12.4 Benign neoplasm of descending colon; K57.30 Diverticulosis of large intestine without perforation or abscess without bleeding; I10 Essential (primary) hypertension; E78.5 Hyperlipidemia, unspecified; E03.9 Hypothyroidism, unspecified; M19.90 Unspecified osteoarthritis, unspecified site; K21.9 Gastro-esophageal reflux disease without esophagitis; Z90.89 Acquired absence of other organs; Z90.49 Acquired absence of other specified parts of digestive tract; Z98.890 Other specified postprocedural states; Z79.899 Other long term (current) drug therapy
CPT/HCPCS: 45380; J2704; 88305

== ENCOUNTER → 2023-06-21 | Outpatient (CLI) | payer MEDICAID ==
[2023-06-22 02:20] LABS: HCT 42.7 % (39.6-50.0); HGB 14.8 d/dL (13.0-17.0); MCH 31.4 pg (27.0-32.0); MCHC 34.7 d/dL (32.0-37.0); MCV 90.5 FL (80.0-97.0); Mean Platelet Volume 12.3 FL (9.5-12.2); NRBC Per 100 WBC 0 X 10*3/uL (0.00-0.01); Platelet Count 153 X 10*3/uL (140-440); RBC 4.72 X 10*6/uL (4.40-5.60); WBC 5.74 X 10*3/uL (4.50-10.00)
[2023-06-22 06:00] LABS: ALT 32 U/L (10-49); AST 17 U/L (14-35); Albumin 4.6 d/dL (3.8-4.9); Albumin/Globulin Ratio 1.92 Ratio (1.60-3.17); Alkaline Phosphatase 78 U/L (41-126); Blood Urea Nitrogen 11.2 mg/dL (9.0-27.0); Calcium 9.5 mg/dL (8.7-10.3); Carbon Dioxide 22.9 mmol/L (21.6-31.8); Chloride 105 mmol/L (96-109); Chol/HDL Ratio 5.94 Ratio; Globulin 2.4 d/dL (1.6-3.3); Glucose 108 mg/dL (70-110); LDL Cholesterol,Calculated 123.4 mg/dL (0.0-131.0); Potassium 4.1 mmol/L (3.5-5.5); Sodium 141 mmol/L (135-145); T4, Free (Free Thyroxine) 1.03 ng/dL (0.80-1.80); Total Bilirubin 0.6 mg/dL (0.3-1.2)
== END | disposition home or self-care (01) ==
LOC: LABWHC1 16:18
PROVIDERS: ATTEND Family Medicine
DX: I10 Essential (primary) hypertension (principal); N40.0 Benign prostatic hyperplasia without lower urinary tract symptoms
CPT/HCPCS: 36415; 80053; 80061; 84439; 84443; 84480; 85027

== ENCOUNTER → 2023-08-13 | Outpatient (CLI) | payer MEDICAID | END | disposition home or self-care (01) | LOC: LABWHC1 11:39 | PROVIDERS: ATTEND Family Medicine | DX: N40.0 Benign prostatic hyperplasia without lower urinary tract symptoms (principal) | CPT/HCPCS: 36415; 84153 ==

== ENCOUNTER → 2023-09-02 | Outpatient (CLI) | payer MEDICAID | END | disposition home or self-care (01) | LOC: LABWHC1 12:01 | PROVIDERS: ATTEND Urology | DX: R97.20 Elevated prostate specific antigen [PSA] (principal) | CPT/HCPCS: 36415; 84153 ==

== ENCOUNTER → 2024-01-26 | Outpatient (CLI) | payer MEDICAID ==
[2024-01-27 02:57] LABS: Basophils # (A) 0.08 X 10*3/uL (0.00-0.10); Basophils % (A) 1.3 %; Eosinophils # (A) 0.29 X 10*3/uL (0.04-0.35); Eosinophils % (A) 4.8 %; HCT 41.4 % (39.6-50.0); HGB 13.9 g/dL (13.0-17.0); Lymphocytes # (A) 1.71 X 10*3/uL (0.90-5.00); Lymphocytes % (A) 28.1 %; MCH 31.2 pg (27.0-32.0); MCHC 33.6 g/dL (32.0-37.0); Monocytes # (A) 0.55 X 10*3/uL (0.20-1.00); NRBC Per 100 WBC 0 X 10*3/uL (0.00-0.01); Neutrophils # (A) 3.44 X 10*3/uL (1.80-7.70); Neutrophils % (A) 56.6 %; Platelet Count 148 X 10*3/uL (140-440); RBC 4.45 X 10*6/uL (4.40-5.60); RDW 13.2 % (11.5-14.5); WBC 6.08 X 10*3/uL (4.50-10.00)
[2024-01-27 03:52] LABS: BUN/Creat Ratio 13.89 Ratio (12.00-20.00); Blood Urea Nitrogen 12.5 mg/dL (9.0-27.0); Calcium 9.6 mg/dL (8.7-10.3); Carbon Dioxide 25.3 mmol/L (21.6-31.8); Chloride 105 mmol/L (96-109); Glucose 93 mg/dL (70-110); Potassium 4.1 mmol/L (3.5-5.5); Sodium 141 mmol/L (135-145)
[2024-01-27 11:31] LABS: Prostate Specific Antigen 7.47 ng/mL (0.000-4.500)
== END | disposition home or self-care (01) ==
LOC: LABWHC1 16:24
PROVIDERS: ATTEND Urology
DX: Z01.812 Encounter for preprocedural laboratory examination (principal)
CPT/HCPCS: 36415; 80048; 84153; 85025; 86850; 86900; 86901

== ENCOUNTER → 2024-01-31 | Outpatient (CLI) | payer MEDICAID | END | disposition home or self-care (01) | LOC: LABPAT 14:26 | PROVIDERS: ATTEND Urology | DX: Z01.818 Encounter for other preprocedural examination (principal) | CPT/HCPCS: 93005 ==

== ENCOUNTER → 2024-07-04 | Outpatient (CLI) | payer MEDICAID | END | disposition home or self-care (01) | LOC: LABWHC1 16:16 | PROVIDERS: ATTEND Family Medicine | DX: C61 Malignant neoplasm of prostate (principal) | CPT/HCPCS: 36415; 84153 ==

== ENCOUNTER → 2024-07-16 | Outpatient (CLI) | payer MEDICAID ==
[~2024-07-16] MED LIST changes: -LACTATED RINGERS 1,000 ML IV SCH; +REGADENOSON 0.4 MG/5 ML SYRINGE IV PRN
--- NOTE | 2024-07-16 10:40 | NM ---
EXAMINATION TYPE: NM stress lexiscan cardiolite DATE OF EXAM: 07/16/2024 COMPARISON: NONE CLINICAL INDICATION: Male, 64 years old with history of I20.89 angina; TECHNIQUE: After the intravenous administration of 9.91 mCi Tc 99m Sestamibi - Cardiolite resting SP ECT images acquired 45 minutes post injection. The patient received 0.4mg Lexiscan, 26.1 mCi Tc 99m Sestamibi - Stress images obtained [address] injection FINDINGS: Review of stress and rest SPECT images. Artifact limits assessment. There is septal wall. No definite Distinct perfusion abnormality. Gated analysis shows normal wall motion with an estimated left vent ricular ejection fraction of 51 %. IMPRESSION: 1. No definite evidence of stress-induced reversible ischemia. Artifact does limit evaluation inferio r and inferoseptal wall correlate clinically. 2. Ejection fraction 51%. [facility], , 07/16/2024 10:38 AM
--- NOTE | 2024-07-16 13:00 | CA ---
Lexiscan Nuclear Stress Test Report Name: Jose Alberto Exam Date: 07/16/2024 09:24 Exam Location: [place] Stress Ht (in): 72 Wt (lb): 227 BSA: 2.25 Ordering Phys: Chano Reyes MD Referring Phys: Ivette Alberto [facility] Technologist: Diego Baird Age: 64 Gender: M : 1960 Procedure CPT: Indications: I20.89 ANGINA ICD-10 Codes: Patient History: PALPITATIONS, ANGINA, PRIOR CVA Medications: ASA 81 mg,,,, SYNTHROID,,,, NEXIUM,,,, ROBOXIN,,,, TYLENOL,,,, TRAMADOL,,,, CBD,,,, SYLINDOPHIL,,,, PHENBENDAZOLE,,, Meds past 24 hrs: Pretest Chest Pain: STRESS TEST Lexiscan Protocol Exercise Duration (min:sec): 01:[address] Depressions (mm): Angina Score: Martinez Score: Resting HR (bpm): 70 Peak HR (bpm): 89 Resting BP (mmHg): 138 / 84 Peak BP (mmHg): 138 / 84 MPHR: 155 Target HR: 132 % MPHR: 57 METS: 1.0 Total Dose: Peak Dose: Atropine: Double Product: 41712 BP Response: Stress Termination: INFUSION COMPLETE Stress Symptoms: LIGHT HEADED,HEADACHE,ARM TINGLING Stress Summary: ECG ANALYSIS Resting ECG: Stress ECG: CONCLUSIONS At baseline EKG showed normal sinus rhythm, normal axis, no significant ST or T wave abnormalities. Patient recieved IV infusion of Lexiscan 0.4mg and at peak infusion EKG showed no significant change from baseline. Conclusions: 1. Normal EKG response to Lexiscan infusion 2. Nuclear imaging to be reported separately. Dr. Surinder Feng DO (Electronically Signed) Final Date: 16 July 2024 12:59
== END | disposition home or self-care (01) ==
LOC: RADNMMAIN 08:01
PROVIDERS: ATTEND Family Medicine
DX: I20.89 Other forms of angina pectoris
CPT/HCPCS: 78452; 93017

== ENCOUNTER → 2025-01-25 | Outpatient (CLI) | payer MEDICAID ==
[2025-01-26 02:12] LABS: HCT 40.5 % (39.6-50.0); HGB 13.8 g/dL (13.0-17.0); MCH 30.3 pg (27.0-32.0); MCHC 34.1 g/dL (32.0-37.0); MCV 88.8 FL (80.0-97.0); Mean Platelet Volume 12.3 FL (9.5-12.2); NRBC Per 100 WBC 0 X 10*3/uL (0.00-0.01); Platelet Count 144 X 10*3/uL (140-440); RBC 4.56 X 10*6/uL (4.40-5.60); RDW 13.3 % (11.5-14.5); WBC 4.17 X 10*3/uL (4.50-10.00)
[2025-01-26 02:47] LABS: ALT 44 U/L (10-49); AST 28 U/L (14-35); Albumin 4.4 g/dL (3.8-4.9); Albumin/Globulin Ratio 1.63 Ratio (1.60-3.17); Alkaline Phosphatase 73 U/L (41-126); BUN/Creat Ratio 15.38 Ratio (12.00-20.00); Blood Urea Nitrogen 12.3 mg/dL (9.0-27.0); Calcium 9.1 mg/dL (8.7-10.3); Carbon Dioxide 22.4 mmol/L (21.6-31.8); Chloride 105 mmol/L (96-109); Chol/HDL Ratio 5.87 Ratio; Globulin 2.7 g/dL (1.6-3.3); Glucose 109 mg/dL (70-110); Potassium 4.2 mmol/L (3.5-5.5); Sodium 140 mmol/L (135-145); T4, Free (Free Thyroxine) 1.04 ng/dL (0.80-1.80); Total Bilirubin 0.6 mg/dL (0.3-1.2); Total Protein 7.1 g/dL (6.2-8.2)
[2025-01-26 02:54] LABS: Prostate Specific Antigen <0.01 ng/mL (0.000-4.500)
== END | disposition home or self-care (01) ==
LOC: LABWHC1 15:41
PROVIDERS: ATTEND Family Medicine
DX: C61 Malignant neoplasm of prostate (principal); I73.9 Peripheral vascular disease, unspecified; E03.9 Hypothyroidism, unspecified; K21.9 Gastro-esophageal reflux disease without esophagitis; R73.03 Prediabetes
CPT/HCPCS: 36415; 80053; 80061; 83036; 84153; 84439; 84443; 84480; 85027